=== PATIENT | male | born 1965 | race Caucasian/White ===

== ENCOUNTER 2016-11-11 07:42 | Day surgery (SDC) | payer OTHER ==
[2016-11-11 08:09] VITALS: BMI 31.9
[2016-11-11] MEDS ORDERED: Propofol 10 mg/ml Inj (20 ML) ONE (08:33)
--- NOTE | 2016-11-11 08:34 | CP.SDSHP ---
Same Day Surgery H & P - History Proposed Procedure: EGD Pre-Op Diagnosis: SEE NOTES - Previous Medical/Surgical History Misc: Other Pain: 6.Severe Pain - Allergies Allergies: Allergies No Known Allergies Allergy (Verified 11/11/16 08:08) - Physical Exam General Appearance: N Heart: WNL Lungs: WNL GI: Other - {Optional Preform as Required} Breast: WNL Abdomen: Other Rectal: Other Integument: WNL : WNL Ortho: WNL ENT: WNL - Impression Pt. Evaluated Today:Candidate for Anesthesia & Procedure: Yes - Date & Time Time: 08:34 Short Stay Discharge - Short Stay Discharge Admitting Diagnosis/Reason for Visit: DYSPEPSIA Disposition: HOME/ ROUTINE
[2016-11-11 08:35] VITALS: TEMP 98
[2016-11-11] MEDS ORDERED: Belladonna-Phenobarbital PO STA (08:35)
[2016-11-11 09:42] VITALS: RESP 16; O2SAT 98
[2016-11-11 10:11] VITALS: BP 122/76; PULSE 66
== END 2016-11-11 10:05 | disposition home or self-care (01) ==
LOC: C.ENDO 07:42
PROVIDERS: ATTEND Specialist
DX: K29.70 Gastritis, unspecified, without bleeding (principal); K30 Functional dyspepsia; R10.13 Epigastric pain; K44.9 Diaphragmatic hernia without obstruction or gangrene; K29.80 Duodenitis without bleeding
CPT/HCPCS: 43239; 88305; J2001; J2704

== ENCOUNTER 2016-11-22 00:26 | Emergency (ER) | payer OTHER ==
[2016-11-22 00:26] VITALS: BMI 31.9
[2016-11-22 00:46] VITALS: RESP 16; O2SAT 97
[2016-11-22] MEDS ORDERED: Sodium Chloride 0.9% 1,000 ML IV ONE (01:09)
--- NOTE | 2016-11-22 01:10 | C.PDOC ---
History Of Present Illness 51 y/o male with hx gerd, s/p recent endoscopy, (awaiting results) on nexium, sucralfate and reglan, c/o intermittent left upper quadrant pain x 3 days with nausea and several episodes of vomiting. pt currently fasting during the day for . today pt sts pain was worse, though eating after fast ended decreased pain. no fever or chills. no cp, no sob. Time Seen by Provider: 11/22/16 01:08 Chief Complaint (Nursing): Abdominal Pain History Per: Patient History/Exam Limitations: no limitations Onset/Duration Of Symptoms: Days (3), Intermittent Episodes Current Symptoms Are (Timing): Still Present Context: Food Severity: Moderate Location Of Pain/Discomfort: LUQ Radiation Of Pain To:: Back Quality Of Discomfort: "Pain" Associated Symptoms: Nausea, Vomiting. denies: Fever, Chills, Diarrhea, Loss Of Appetite, Chest Pain Alleviating Factors: Other (eating) Past Medical History Reviewed: Historical Data, Nursing Documentation, Vital Signs Vital Signs: Last Vital Signs Temp 98 F 11/22/16 03:33 Pulse 80 11/22/16 03:33 Resp 16 11/22/16 03:33 BP 121/74 11/22/16 03:33 Pulse Ox 97 11/22/16 04:06 - Medical History PMH: Fractures (LEFT ANKLE WITH SURGERY AND SCREWS), GERD, HTN Denies: Colonic Polyps Surgical History: Endoscopy Family History: States: Unknown Family Hx - Social History Hx Tobacco Use: No Hx Alcohol Use: No Hx Substance Use: No - Immunization History Hx Influenza Vaccination: No Hx Pneumococcal Vaccination: No Review Of Systems Constitutional: Negative for: Fever, Chills Cardiovascular: Negative for: Chest Pain, Palpitations Respiratory: Negative for: Cough, Shortness of Breath Gastrointestinal: Positive for: Nausea, Vomiting, Abdominal Pain. Negative for : Diarrhea, Constipation Musculoskeletal: Negative for: Back Pain Skin: Negative for: Rash Neurological: Negative for: Weakness, Numbness Physical Exam - Physical Exam Appears: Non-toxic, No Acute Distress Skin: Normal Color, Warm, Dry Head: Atraumatic, Normacephalic Nose: Normal Oral Mucosa: Moist Tongue: Normal Appearing Lips: Normal Appearing Teeth: Normal Dentition Neck: Normal ROM Chest: Symmetrical, No Deformity, No Tenderness Cardiovascular: Rhythm Regular, No Murmur Respiratory: Normal Breath Sounds, No Rales, No Rhonchi, No Wheezing Gastrointestinal/Abdominal: Bowel Sounds, Soft, Tenderness (left upper quadrant tender), No Distention, No Guarding, No Rebound Back: Normal Inspection, No CVA Tenderness Extremity: Normal ROM, No Pedal Edema, No Calf Tenderness Neurological/Psych: Oriented x3, Normal Speech, Normal Cognition ED Course And Treatment - Laboratory Results Result Diagrams: 11/22/16 01:47 11/22/16 01:47 ECG: Interpreted By Me, Viewed By Me ECG Rhythm: Sinus Rhythm ECG Interpretation: Normal, No Acute Changes Interpretation Of ECG: nsr Rate From EC O2 Sat by Pulse Oximetry: 97 Pulse Ox Interpretation: Normal Medical Decision Making Medical Decision Making: pt feeling much better after zofran and pepcid, abdomen, soft, nd, nt. normal ekg. normal labs. will d/c home with recommendatin to see Dr Pedraza sooner than December 13 appt scheduled. , Disposition Counseled Patient/Family Regarding: Studies Performed, Diagnosis, Need For Followup - Disposition Referrals: Arianna Pedraza [Staff Provider] - Raquel Anderson MD [Staff Provider] - Disposition: HOME/ ROUTINE Disposition Time: 03:23 Condition: IMPROVED Additional Instructions: Follow up with Drs. Anderson and Dr Pedraza in next few days. Continue taking medications. Return to ER for any worsening symptoms. Instructions: Abdominal Pain (ED) Forms: General Discharge Instructions - Clinical Impression Clinical Impression: Abdominal pain, Gastritis
[2016-11-22] MEDS ORDERED: Sodium Chloride 0.9% 1,000 ML ONE (01:18)
[2016-11-22 01:53] LABS: BASO # 0.1 K/uL (0.0-0.2); CHLORIDE 101 mmol/L (98-107); EOS # 0.2 K/uL (0.0-0.7); HEMATOCRIT 44.4 % (35.0-51.0); LYMPH # 2.9 K/uL (1.0-4.3); LYMPH % 45.5 % (20.0-40.0); MEAN CELL VOLUME 84.8 fL (80.0-94.0); MEAN CORPUSCULAR HEMOGLOBIN 28.3 pg (27.0-31.0); MEAN CORPUSCULAR HGB CONC 33.3 g/dL (33.0-37.0); MEAN PLATELET VOLUME 9.5 fL (7.2-11.7); MONO # 0.6 K/uL (0.0-0.8); MONO % 9.6 % (0.0-10.0); NRBC % 0.1 % (0.0-2.0); RED CELL DISTRIBUTION WIDTH 13.7 % (11.5-14.5); WHITE BLOOD COUNT 6.4 K/uL (4.8-10.8)
[2016-11-22 01:54] LABS: POTASSIUM 3.5 mmol/L (3.6-5.2); SODIUM 142 mmol/L (132-148)
[2016-11-22 01:56] LABS: ALB/GLOB RATIO 1.4 (1.0-2.1); ALKALINE PHOSPHATASE 53 U/L (38-126); AST/SGOT 27 U/L (17-59); BILIRUBIN,TOTAL 1.5 mg/dL (0.2-1.3); CARBON DIOXIDE 26 mmol/L (22-30); GFR AFRICAN-AMERICAN > 60; TOTAL PROTEIN 7.8 g/dL (6.3-8.3)
[2016-11-22 01:57] LABS: ALT/SGPT 30 U/L (21-72); BLOOD UREA NITROGEN 11 mg/dL (9-20); GLUCOSE,RANDOM 109 mg/dL (75-110)
[2016-11-22 03:35] VITALS: BP 121/74; PULSE 80; TEMP 98
--- NOTE | 2016-11-25 00:51 | CARD ---
APPROVED REPORT EKG Measurement Heart [id number] <Conclusion> Normal sinus rhythm Normal ECG
== END 2016-11-22 03:33 | disposition home or self-care (01) ==
LOC: C.ER 00:26
DX: K29.70 Gastritis, unspecified, without bleeding (principal)
CPT/HCPCS: 80053; 83690; 84484; 85025; 96374; 96375; 99284; J2405; J7040

== ENCOUNTER 2016-12-22 00:02 | Emergency (ER) | payer OTHER ==
[2016-12-22 00:02] VITALS: BMI 31.9
[2016-12-22 00:08] VITALS: BP 150/87; PULSE 77; RESP 16; TEMP 98.4; O2SAT 98
--- NOTE | 2016-12-22 00:44 | C.PDOC ---
History Of Present Illness 51 y/o male presents to emergency department with complaint of right ear pain since yesterday. Patient states he was applying old cortisporin drops w/o relief. Denies fever, chills, headache, dizziness, drainage from ear, or other associated symptoms. Time Seen by Provider: 12/22/16 00:12 Chief Complaint (Nursing): ENT Problem History Per: Patient History/Exam Limitations: None Onset/Duration Of Symptoms: Days Current Symptoms Are (Timing): Still Present Anticoagulant/Antiplatlet Use?: No Past Medical History Reviewed: Historical Data, Nursing Documentation, Vital Signs Vital Signs: Last Vital Signs Temp 98.4 F 12/22/16 00:04 Pulse 77 12/22/16 00:04 Resp 16 12/22/16 00:04 BP 150/87 12/22/16 00:04 Pulse Ox 98 12/22/16 01:32 - Medical History PMH: Fractures (LEFT ANKLE WITH SURGERY AND SCREWS), GERD, HTN Surgical History: Endoscopy Family History: States: Unknown Family Hx - Social History Hx Tobacco Use: No Hx Alcohol Use: No Hx Substance Use: No - Immunization History Hx Influenza Vaccination: No Hx Pneumococcal Vaccination: No Review Of Systems Except As Marked, All Systems Reviewed And Found Negative. Constitutional: Negative for: Fever, Chills ENT: Positive for: Ear Pain. Negative for: Throat Pain Respiratory: Negative for: Cough, Wheezing Gastrointestinal: Negative for: Nausea, Vomiting, Abdominal Pain Musculoskeletal: Negative for: Neck Pain Skin: Negative for: Rash Neurological: Negative for: Headache, Dizziness Physical Exam - Physical Exam Appears: Non-toxic, No Acute Distress Skin: Normal Color, Warm, Dry Head: Atraumatic, Normacephalic Eye(s): bilateral: Normal Inspection, PERRL, EOMI Ear(s): Left: Normal, Right: TM Erythema (mild), Other (tragal tenderness) Nose: Normal Oral Mucosa: Moist Throat: Normal, No Erythema, No Exudate Neck: Supple Neurological/Psych: Oriented x3, Normal Speech Gait: Steady ED Course And Treatment O2 Sat by Pulse Oximetry: 98 (RA) Pulse Ox Interpretation: Normal Progress Note: On reassessment, patient is resting comfortably, and is in no acute distress. Patient instructed to follow up with clinic/PMD within 1-2 days. Disposition Counseled Patient/Family Regarding: Diagnosis, Need For Followup, Rx Given - Disposition Referrals: Hien Vickers MD [Staff Provider] - Disposition: HOME/ ROUTINE Disposition Time: 00:42 Condition: STABLE Additional Instructions: Continue ear drops- Take advil for pain Follow up with PMD Return to ER if worse Prescriptions: Neomycin/Polymyxin/Hydrocortis [Cortisporin Otic Susp] 3 - 5 drop TOP TID #1 bottle Instructions: Otitis Externa (ED) - Clinical Impression Clinical Impression: Otitis externa - PA / MANAGER OF ORGANIZATIONAL DEVELOPMENT / Resident Statement MD/DO has reviewed & agrees with the documentation as recorded. - Scribe Statement The provider has reviewed the documentation as recorded by the Jenniferibchidi Chavez All medical record entries made by the Henry were at my direction and personally dictated by me. I have reviewed the chart and agree that the record accurately reflects my personal performance of the history, physical exam, medical decision making, and the department course for this patient. I have also personally directed, reviewed, and agree with the discharge instructions and disposition.
== END 2016-12-22 00:48 | disposition home or self-care (01) ==
LOC: C.ER 00:02
DX: H60.91 Unspecified otitis externa, right ear (principal)

== ENCOUNTER 2017-02-03 13:56 | Emergency (ER) | payer MEDICAID, OTHER ==
[2017-02-03 13:56] VITALS: BMI 31.9
[2017-02-03 14:15] VITALS: RESP 20
--- NOTE | 2017-02-03 14:31 | C.PDOC ---
History Of Present Illness 51 year old male, with a history of HTN, presents to the ED with complaints of high blood pressure with associated dizziness, lightheadedness, and headache beginning this morning. Patient states he was seen by his doctor, Dr. Vickers, two weeks ago for evaluation of blood pressure. Dr. Vickers increased enalapril 5 mg to 10 mg. Patient's takes his medication each night around 10 pm and then takes his pressure in the morning when he wakes. It is normally 125/80. He states today's blood pressure reading was 170/90 with symptoms beginning this morning. Patient did not taking medications or eat today and denies fever, chest pain, or shortness of breath. Time Seen by Provider: 02/03/17 14:16 Chief Complaint (Nursing): Dizziness/Lightheaded History Per: Patient History/Exam Limitations: no limitations Onset/Duration Of Symptoms: Hrs Current Symptoms Are (Timing): Better (Blood pressure is 134/90 in ED but symptoms persist) Seizure Or Post-ictal Symptoms: None Fall Associated With With Symptoms: No Recent travel outside of the [place]: No Additional History Per: Prior Records (Seen by Dr. Vickers two weeks ago ) Past Medical History Reviewed: Historical Data, Nursing Documentation, Vital Signs Vital Signs: Last Vital Signs Temp 98.3 F 02/03/17 14:14 Pulse 79 02/03/17 14:14 Resp 20 02/03/17 14:14 BP 134/83 02/03/17 14:14 Pulse Ox 79 L 02/03/17 14:47 - Medical History PMH: Fractures (LEFT ANKLE WITH SURGERY AND SCREWS), GERD, HTN Surgical History: Endoscopy Family History: States: Unknown Family Hx - Social History Hx Tobacco Use: No Hx Alcohol Use: No Hx Substance Use: No - Immunization History Hx Influenza Vaccination: No Hx Pneumococcal Vaccination: No Review Of Systems Constitutional: Positive for: Other (High blood pressure ). Negative for: Fever , Chills Cardiovascular: Negative for: Chest Pain, Palpitations Respiratory: Negative for: Cough, Shortness of Breath Gastrointestinal: Negative for: Nausea, Vomiting, Abdominal Pain Physical Exam - Physical Exam Appears: Non-toxic, No Acute Distress Skin: Warm, Dry Head: Atraumatic Eye(s): bilateral: Normal Inspection Oral Mucosa: Moist Neck: Supple Chest: Symmetrical, No Deformity Cardiovascular: Rhythm Regular, No Murmur Respiratory: Normal Breath Sounds, No Rales, No Rhonchi, No Wheezing Gastrointestinal/Abdominal: Soft, No Tenderness, No Distention, No Guarding, No Rebound Extremity: Normal ROM, No Tenderness Neurological/Psych: Oriented x3, Normal Speech, Normal Cognition ED Course And Treatment - Laboratory Results Result Diagrams: 02/03/17 14:47 02/03/17 14:47 Lab Interpretation: Normal O2 Sat by Pulse Oximetry: 97 (room air ) Pulse Ox Interpretation: Normal Progress Note: UA and labs were ordered. Reevaluation Time: 15:54 Reassessment Condition: Improved (BP remains low now 129/75. Patient is asymptomatic.) Disposition Counseled Patient/Family Regarding: Studies Performed, Diagnosis, Need For Followup - Disposition Referrals: Hien Vickers MD [Staff Provider] - Disposition: HOME/ ROUTINE Disposition Time: 15:55 Condition: IMPROVED Instructions: Hypertension (ED) Forms: [facility] (Burkinan) - Clinical Impression Clinical Impression: Hypertension - Scribe Statement The provider has reviewed the documentation as recorded by the Scribe Lindsey Jones All medical record entries made by the Scribe were at my direction and personally dictated by me. I have reviewed the chart and agree that the record accurately reflects my personal performance of the history, physical exam, medical decision making, and the department course for this patient. I have also personally directed, reviewed, and agree with the discharge instructions and disposition.
[2017-02-03 14:51] LABS: EOS # 0.1 K/uL (0.0-0.7); EOS % 2.4 % (0.0-4.0); LYMPH # 2.1 K/uL (1.0-4.3); LYMPH % 49.9 % (20.0-40.0); MEAN CELL VOLUME 84.4 fL (80.0-94.0); MEAN CORPUSCULAR HEMOGLOBIN 28.5 pg (27.0-31.0); MEAN CORPUSCULAR HGB CONC 33.7 g/dL (33.0-37.0); MEAN PLATELET VOLUME 8.3 fL (7.2-11.7); MONO # 0.3 K/uL (0.0-0.8); NRBC % 0.1 % (0.0-2.0); RED CELL DISTRIBUTION WIDTH 13.6 % (11.5-14.5); WHITE BLOOD COUNT 4.3 K/uL (4.8-10.8)
[2017-02-03 15:00] LABS: CHLORIDE 102 mmol/L (98-107)
[2017-02-03 15:01] LABS: POTASSIUM 4.1 mmol/L (3.6-5.2); SODIUM 141 mmol/L (132-148)
[2017-02-03 15:02] LABS: URINE BILIRUBIN NEGATIVE (NEGATIVE); URINE BLOOD NEGATIVE (NEGATIVE); URINE COLOR YELLOW (YELLOW); URINE GLUCOSE (UA) Normal (Normal); URINE KETONE NEGATIVE (NEGATIVE)
[2017-02-03 15:03] LABS: ALB/GLOB RATIO 1.2 (1.0-2.1); ALKALINE PHOSPHATASE 57 U/L (38-126); AST/SGOT 23 U/L (17-59); BLOOD UREA NITROGEN 10 mg/dL (9-20); CARBON DIOXIDE 23 mmol/L (22-30); GFR AFRICAN-AMERICAN > 60; TOTAL PROTEIN 7.6 g/dL (6.3-8.3)
[2017-02-03 15:03] LABS: RBC URINE < 1 /hpf (0-3); URINE LEUKOCYTE ESTERASE NEGATIVE Leu/uL (Negative); URINE PROTEIN NEGATIVE (NEGATIVE); URINE UROBILINOGEN Normal mg/dL (0.2-1.0); WBC URINE < 1 /hpf (0-5)
[2017-02-03 15:04] LABS: ALT/SGPT 33 U/L (21-72); CALCIUM 9.4 mg/dl (8.6-10.4); GLUCOSE,RANDOM 121 mg/dL (75-110); MAGNESIUM 2.1 mg/dL (1.6-2.3)
[2017-02-03 15:55] VITALS: O2SAT 97
[2017-02-03 16:12] VITALS: BP 112/73; PULSE 65; TEMP 98.5
== END 2017-02-03 16:11 | disposition home or self-care (01) ==
LOC: C.ER 13:56
DX: I10 Essential (primary) hypertension (principal)

== ENCOUNTER 2017-02-06 17:50 | Emergency (ER) | payer MEDICAID ==
[2017-02-06 17:50] VITALS: BMI 31.9
[2017-02-06 17:59] VITALS: TEMP 98.4
[2017-02-06] MEDS ORDERED: Fluorescein 1 mg Ophthalmic Strip OD ONE (19:27)
[2017-02-06] MEDS ORDERED: Tetracaine 0.5% Ophth 2 ML BOTTLE OD ONE (19:27)
[2017-02-06] MEDS ORDERED: Fluorescein 1 mg Ophthalmic Strip ONE (19:32)
[2017-02-06] MEDS ORDERED: Tetracaine 0.5% Ophth (OR ONLY) ONE (19:34)
--- NOTE | 2017-02-06 19:45 | CT ---
EXAM: CT Head Without Intravenous Contrast EXAM DATE/TIME: 02/06/2017 6:37 PM CLINICAL HISTORY: 51 years old, male; Pain; Headache; Headache not specified; Additional info: Headache. HTN. Right eye pain? TECHNIQUE: Axial computed tomography images of the head/brain without intravenous contrast. All CT scans at this facility use one or more dose reduction techniques, viz.: automated exposure control; ma/kV adjustment per patient size (including targeted exams where dose is matched to indication; i.e. head); or iterative reconstruction technique. COMPARISON: No relevant prior studies available. FINDINGS: BRAIN: No significant acute abnormality identified. Diffuse, mild, age-related cortical atrophy and ventriculomegaly. No acute hemorrhage seen within the brain. No acute extra-axial fluid collections visualized. No evidence of significant mass effect within the brain. Normal frye-white matter differentiation. VENTRICLES: No evidence of significant hydrocephalus. BONES/JOINTS: No acute fractures or other acute bony abnormality noted. SOFT TISSUES: No acute abnormality of the visualized extracranial soft tissues identified. SINUSES: Visualized paranasal sinuses appear clear. MASTOID AIR CELLS: Mastoid air cells appear clear. ORBITS: Intraorbital soft tissues appear grossly intact. IMPRESSION: - No acute findings seen within the brain. - See above for remaining findings.
--- NOTE | 2017-02-06 20:09 | C.PDOC ---
History Of Present Illness Pt c/o right eye pain and headache. Time Seen by Provider: 02/06/17 18:23 Chief Complaint (Nursing): Eye Problem History Per: Patient Onset/Duration Of Symptoms: Days (1) Current Symptoms Are (Timing): Still Present Injury To Eye?: No Severity: Moderate Quality: "Pain" Associated Symptoms: Pain, FB Sensation, Itching, Discharge From Eye Additional History Per: Prior Records Past Medical History Reviewed: Historical Data, Nursing Documentation, Vital Signs Vital Signs: Last Vital Signs Temp 98.4 F 02/06/17 17:57 Pulse 87 02/06/17 17:57 Resp 18 02/06/17 17:57 BP 135/90 02/06/17 17:57 Pulse Ox 99 02/06/17 17:57 - Medical History PMH: Fractures (LEFT ANKLE WITH SURGERY AND SCREWS), Gastritis, GERD, HTN, Hyperlipidemia Surgical History: Endoscopy Family History: States: Unknown Family Hx - Social History Hx Tobacco Use: No Hx Alcohol Use: No Hx Substance Use: No - Immunization History Hx Influenza Vaccination: No Hx Pneumococcal Vaccination: No Review Of Systems Except As Marked, All Systems Reviewed And Found Negative. Constitutional: Negative for: Fever Eyes: Positive for: Pain (right). Negative for: Vision Change, Eyelid Inflammation ENT: Negative for: Ear Pain Cardiovascular: Negative for: Chest Pain Respiratory: Negative for: Shortness of Breath Gastrointestinal: Negative for: Vomiting, Abdominal Pain Musculoskeletal: Negative for: Neck Pain Skin: Negative for: Rash Neurological: Positive for: Headache, Dizziness. Negative for: Weakness, Numbness, Incoordination, Change in Speech, Confusion, Seizures, Altered Mental Status Physical Exam - Physical Exam Appears: Non-toxic, No Acute Distress Skin: Normal Color, Warm, Dry, No Rash Head: Atraumatic, Normacephalic Eye(s): bilateral: PERRL, EOMI, right: Other (mild conjunctival injection) Neck: Normal ROM, Supple Cardiovascular: Rhythm Regular Respiratory: Normal Breath Sounds, No Accessory Muscle Use Gastrointestinal/Abdominal: Soft, No Tenderness Extremity: Normal ROM Neurological/Psych: Oriented x3, Normal Speech, Normal Cognition, Normal Cranial Nerves, No Cerebellar Signs, Normal Motor, Normal Sensation ED Course And Treatment O2 Sat by Pulse Oximetry: 99 Pulse Ox Interpretation: Normal - CT Scan/US CT head Other Rad Studies (CT/US): Read By Radiologist, Radiology Report Reviewed CT/US Interpretation: IMPRESSION: - No acute findings seen within the brain. - See above for remaining findings. Progress Note: Right eye stained with flouricein. There is uptake on the right cornea consistent with cornea abrasion. Eye pain had resolved completely after tetracaine drop. Reassessment Condition: Improved Disposition Counseled Patient/Family Regarding: Studies Performed, Diagnosis, Need For Followup, Rx Given - Disposition Referrals: Merritt Faye MD [Staff Provider] - Disposition: HOME/ ROUTINE Disposition Time: 20:09 Condition: IMPROVED Additional Instructions: Follow up with an [facility] (eye doctor) within 2-3 days. Return to the ER if you develop change in vision, worsening of symptoms or if you have any other concerns. Prescriptions: Tobramycin 0.3% [Tobrex 0.3% Ophth Soln] 2 drop OP QID #1 bottle Instructions: Corneal Abrasion (ED) Forms: [facility] (Palestinian) - Clinical Impression Clinical Impression: Corneal abrasion, right
[2017-02-06 20:31] VITALS: BP 138/85; PULSE 79; RESP 16; O2SAT 98
== END 2017-02-06 20:30 | disposition home or self-care (01) ==
LOC: C.ER 17:50
DX: S05.01XA Injury of conjunctiva and corneal abrasion without foreign body, right eye, initial encounter (principal); X58.XXXA Exposure to other specified factors, initial encounter; Y92.9 Unspecified place or not applicable

== ENCOUNTER 2017-03-04 16:13 | Emergency (ER) | payer MEDICAID ==
[2017-03-04 16:19] VITALS: RESP 18; O2SAT 99; BMI 32.4
[2017-03-04] MEDS ORDERED: Sodium Chloride 0.9% 1,000 ML IV ONE (16:51)
--- NOTE | 2017-03-04 16:51 | C.PDOC ---
History Of Present Illness 52 year old male comes in complaining of headache, dizziness, and tingling sensation to the arms and legs for a month now. Headache is described as tightness around his head, and his dizziness is described as "pressure to the head". Patient notes the tingling sensation to the extremities as "pins to the arms and legs" that last for a few seconds. Patient notes seeing his PMD Dr. Vickers yesterday for the same complaints and recommend neurologist. Patient is not taking meds for the complaints. Denies head trauma, nausea, vomiting, photophobia, weakness, or visual changes. No fever or chills. Time Seen by Provider: 03/04/17 16:31 Chief Complaint (Nursing): Headache History Per: Patient History/Exam Limitations: no limitations Onset/Duration Of Symptoms: Days (One Month) Current Symptoms Are (Timing): Still Present Severity: Mild Quality: Tightness Associated Symptoms: denies: Photophobia, Blurred Vision, Nausea, Vomiting, Extremity Weakness Recent travel outside of the [place]: No Additional History Per: Patient Past Medical History Reviewed: Historical Data, Nursing Documentation, Vital Signs Vital Signs: Last Vital Signs Temp 98.2 F 03/04/17 16:18 Pulse 89 03/04/17 16:18 Resp 18 03/04/17 16:18 BP 145/90 03/04/17 16:18 Pulse Ox 99 03/04/17 18:00 - Medical History PMH: Fractures (LEFT ANKLE WITH SURGERY AND SCREWS), Gastritis, GERD, HTN, Hyperlipidemia Surgical History: Endoscopy Family History: States: Unknown Family Hx - Social History Hx Tobacco Use: No Hx Alcohol Use: No Hx Substance Use: No - Immunization History Hx Tetanus Toxoid Vaccination: No Hx Influenza Vaccination: No Hx Pneumococcal Vaccination: No Review Of Systems Constitutional: Negative for: Fever, Chills, Other (Head trauma) Eyes: Negative for: Vision Change, Other (Photophobia) Cardiovascular: Negative for: Chest Pain, Palpitations Respiratory: Negative for: Cough, Shortness of Breath Gastrointestinal: Negative for: Nausea, Vomiting, Abdominal Pain Neurological: Positive for: Numbness (Tingling sensation), Headache, Dizziness. Negative for: Weakness, Confusion Physical Exam - Physical Exam Appears: Non-toxic, No Acute Distress Skin: Normal Color, Warm, Dry Head: Atraumatic, Normacephalic Eye(s): bilateral: Normal Inspection, PERRL, EOMI Nose: Normal Oral Mucosa: Moist Throat: Normal, No Erythema Neck: Normal ROM, Supple, No Other (negative kernig sign) Chest: Symmetrical Cardiovascular: Rhythm Regular, No Murmur Respiratory: Normal Breath Sounds, No Accessory Muscle Use, No Rales, No Rhonchi , No Wheezing Extremity: Bilateral: Atraumatic, Normal Color And Temperature, Normal ROM Neurological/Psych: Oriented x3, Normal Speech, Normal Cranial Nerves, No Cerebellar Signs, Normal Motor, Normal Sensation, No Dysarthria, Other (No focal deficit) Gait: Steady Other Neurological Findings: No Facial Palsy, No Tongue Deviation ED Course And Treatment - Laboratory Results Result Diagrams: 03/04/17 17:06 03/04/17 17:06 Lab Interpretation: No Acute Changes O2 Sat by Pulse Oximetry: 99 (RA) Pulse Ox Interpretation: Normal Medical Decision Making Medical Decision Making: mpression: headache Prior records reviewed: Patient was seen her 02/06/2017 for headache and eye pain , CT showed no acute findings. Patient had an MRI done on 08/11/2016 with a impression of a small white matter T2 hyperintensities seen in the left cerebral hemisphere. No evidence of intracranial hemorrhage, infarcts or mass lesions. Plan: * Blood labs * Toradol * Reglan * IV fluids Progress: 1745 On reevaluation, patient reports improvement of headache. It has much improved. Patient is resting comfortably, no neurologic deficit, no photophobia , no fever, and no nuchal rigidity. Patient was instructed to follow up with physician DR Vickers for further evaluation or return to ED if symptoms persist or worsen. Patient's status improved during Emergency Department evaluation. Disposition Counseled Patient/Family Regarding: Diagnosis, Need For Followup, Rx Given - Disposition Referrals: Hien Vickers MD [Staff Provider] - Disposition: HOME/ ROUTINE Disposition Time: 18:05 Condition: STABLE Additional Instructions: Follow up with your primary medical doctor DR Vickers for further evaluation. Take medications as prescribed. Return to the emergency department at any time if symptoms persist or worsen. Prescriptions: Acetaminophen/Butalbital/Caf [Fioricet] 1 tab PO TID PRN #20 tab PRN Reason: Headache Instructions: Tension Headache (ED) Forms: [facility] (Frisian) - POA Present On Arrival: None - Clinical Impression Clinical Impression: Headache - Scribe Statement The provider has reviewed the documentation as recorded by the Scribe Gisela adler All medical record entries made by the Jenniferibe were at my direction and personally dictated by me. I have reviewed the chart and agree that the record accurately reflects my personal performance of the history, physical exam, medical decision making, and the department course for this patient. I have also personally directed, reviewed, and agree with the discharge instructions and disposition.
[2017-03-04] MEDS ORDERED: Sodium Chloride 0.9% 1,000 ML ONE (17:16)
[2017-03-04 17:20] LABS: BASO # 0.1 K/uL (0.0-0.2); BASO % 1.7 % (0.0-2.0); EOS # 0.1 K/uL (0.0-0.7); EOS % 1.4 % (0.0-4.0); HEMATOCRIT 40.8 % (35.0-51.0); LYMPH # 1.9 K/uL (1.0-4.3); LYMPH % 43.8 % (20.0-40.0); MEAN CELL VOLUME 84.9 fL (80.0-94.0); MEAN CORPUSCULAR HEMOGLOBIN 29.1 pg (27.0-31.0); MEAN CORPUSCULAR HGB CONC 34.3 g/dL (33.0-37.0); MEAN PLATELET VOLUME 8.6 fL (7.2-11.7); MONO # 0.3 K/uL (0.0-0.8); MONO % 7.3 % (0.0-10.0); RED CELL DISTRIBUTION WIDTH 13.6 % (11.5-14.5); WHITE BLOOD COUNT 4.4 K/uL (4.8-10.8)
[2017-03-04 17:39] LABS: CHLORIDE 99 mmol/L (98-107); POTASSIUM 4.7 mmol/L (3.6-5.2); SODIUM 141 mmol/L (132-148)
[2017-03-04 17:41] LABS: BILIRUBIN,TOTAL 1.5 mg/dL (0.2-1.3); CARBON DIOXIDE 25 mmol/L (22-30); GFR AFRICAN-AMERICAN > 60
[2017-03-04 17:42] LABS: ALB/GLOB RATIO 1.4 (1.0-2.1); ALKALINE PHOSPHATASE 41 U/L (38-126); ALT/SGPT 32 U/L (21-72); AST/SGOT 29 U/L (17-59); BLOOD UREA NITROGEN 12 mg/dL (9-20); CALCIUM 8.6 mg/dl (8.6-10.4); GLUCOSE,RANDOM 90 mg/dL (75-110); TOTAL PROTEIN 7.9 g/dL (6.3-8.3)
[2017-03-04 18:17] VITALS: BP 145/87; PULSE 80; TEMP 97.8
== END 2017-03-04 18:18 | disposition home or self-care (01) ==
LOC: C.ER 16:13
DX: R51 Headache (principal)
CPT/HCPCS: 80053; 85025; 96361; 96374; 96375; 99285; J1885; J2765; J7040

== ENCOUNTER 2017-05-30 02:12 | Emergency (ER) | payer MEDICAID ==
[2017-05-30 02:12] VITALS: BMI 32.4
[2017-05-30 02:30] VITALS: O2SAT 98
[2017-05-30 03:22] VITALS: RESP 18
--- NOTE | 2017-05-30 04:42 | C.PDOC ---
History Of Present Illness Kaylie Donato is a 52 year old male, with a past medical history of hypertension and hyperlipidemia, who presents to the emergency department for high blood pressure and headache onset x1 hour prior to arrival. Patient takes lisinopril 10mg but states blood pressure goes up and down. He took an extra pill today before arriving to the ER. He denies any other medical complaints. PMD: Hien Vickers Chief Complaint (Nursing): High Blood Pressure History Per: Patient History/Exam Limitations: no limitations Onset/Duration Of Symptoms: Hrs (x1 BARN HAND) Associated Symptoms: Headache Past Medical History Reviewed: Historical Data, Nursing Documentation, Vital Signs Vital Signs: Last Vital Signs Temp 97.8 F 05/30/17 05:40 Pulse 80 05/30/17 05:40 Resp 18 05/30/17 05:40 BP 146/85 05/30/17 05:40 Pulse Ox 98 05/30/17 05:46 - Medical History PMH: Fractures (LEFT ANKLE WITH SURGERY AND SCREWS), Gastritis, GERD, HTN, Hyperlipidemia Surgical History: Endoscopy Family History: States: Unknown Family Hx - Social History Hx Tobacco Use: No Hx Alcohol Use: No Hx Substance Use: No - Immunization History Hx Tetanus Toxoid Vaccination: No Hx Influenza Vaccination: No Hx Pneumococcal Vaccination: No Review Of Systems Except As Marked, All Systems Reviewed And Found Negative. Constitutional: Positive for: Other (elevated blood pressure) Neurological: Positive for: Headache Physical Exam - Physical Exam Appears: No Acute Distress Skin: Normal Color, Warm, Dry Head: Atraumatic, Normacephalic Eye(s): bilateral: Normal Inspection, EOMI Neck: Normal, Normal ROM, Supple Cardiovascular: Rhythm Regular Respiratory: Normal Breath Sounds, No Accessory Muscle Use Gastrointestinal/Abdominal: Normal Exam, Soft, No Tenderness Extremity: Normal ROM, No Deformity, No Swelling Neurological/Psych: Oriented x3 (awake and alert), No Other (no focal deficits) ED Course And Treatment O2 Sat by Pulse Oximetry: 98 (RA) Pulse Ox Interpretation: Normal Progress Note: On re-evaluation patient feels better, BP is down, no more c/o headache. Medical Decision Making Medical Decision Making: Initial Impression: HTN Initial Plan: --Head w/o contrast [CT] --Tylenol 650 mg PO --reevaluation 04:[address] FINDINGS: Brain: Mild cerebral and cerebellar volume loss. Minimal hypodensity is seen in the periventricular cerebral white matter. No hemorrhage. Ventricles: Unremarkable. No ventriculomegaly. Bones/joints: Unremarkable. No acute fracture. Soft tissues: Unremarkable. Sinuses: Unremarkable. No acute sinusitis. Mastoid air cells: Unremarkable. No mastoid effusion. Orbits: The globe and lens are intact. IMPRESSION: No evidence of an acute intracranial hemorrhage, midline shift or mass effect is identified. Disposition - Disposition Disposition: HOME/ ROUTINE Disposition Time: 05:35 Condition: STABLE Additional Instructions: Follow up with your PMD within 1-2 days. Return to ED if feel worse. take all medications as instructed by your PMD. Instructions: Hypertension (ED), General Headache (ED) Forms: [employer] (Togolese) - Clinical Impression Clinical Impression: Hypertension, Headache - Scribe Statement Winston Meadows All medical record entries made by the Scribe were at my direction and personally dictated by me. I have reviewed the chart and agree that the record accurately reflects my personal performance of the history, physical exam, medical decision making, and the department course for this patient. I have also personally directed, reviewed, and agree with the discharge instructions and disposition.
--- NOTE | 2017-05-30 04:50 | CT ---
EXAM: CT Head Without Intravenous Contrast CLINICAL HISTORY: 52 years old, male; Pain; Headache; Headache not specified; Additional info: Headache, elevated BP TECHNIQUE: Axial computed tomography images of the head/brain without intravenous contrast. All CT scans at this facility use one or more dose reduction techniques, viz.: automated exposure control; ma/kV adjustment per patient size (including targeted exams where dose is matched to indication; i.e. head); or iterative reconstruction technique. 180 images are submitted. COMPARISON: No relevant prior studies available. FINDINGS: Brain: Mild cerebral and cerebellar volume loss. Minimal hypodensity is seen in the periventricular cerebral white matter. No hemorrhage. Ventricles: Unremarkable. No ventriculomegaly. Bones/joints: Unremarkable. No acute fracture. Soft tissues: Unremarkable. Sinuses: Unremarkable. No acute sinusitis. Mastoid air cells: Unremarkable. No mastoid effusion. Orbits: The globe and lens are intact. IMPRESSION: No evidence of an acute intracranial hemorrhage, midline shift or mass effect is identified.
[2017-05-30 06:23] VITALS: BP 146/85; PULSE 80; TEMP 97.8
== END 2017-05-30 05:45 | disposition home or self-care (01) ==
LOC: C.ER 02:12
DX: I10 Essential (primary) hypertension (principal); R51 Headache; E78.5 Hyperlipidemia, unspecified; K21.9 Gastro-esophageal reflux disease without esophagitis; Z87.891 Personal history of nicotine dependence

== ENCOUNTER 2017-06-18 02:16 | Emergency (ER) | payer MEDICAID ==
[2017-06-18 02:18] VITALS: BMI 32.4
--- NOTE | 2017-06-18 02:54 | C.PDOC ---
History Of Present Illness 52 year old male presents to the ER with a complaint of a headache that began approximately 1 hour QUALITY LIAISON. Patient states he feels like his head it "boiling". He notes he usually does not get headaches but over the past few weeks he has been getting headaches. Patient was seen in the ER on 05/30/17 for the same complaint, he had a CT head at the time that was negative and was discharge with Rx. Denies nausea, vomiting, weakness, numbness, or change in vision. Chief Complaint (Nursing): Headache History Per: Patient History/Exam Limitations: no limitations Onset/Duration Of Symptoms: Hrs Current Symptoms Are (Timing): Still Present Preceeding Symptoms: None Associated Symptoms: denies: Photophobia, Blurred Vision, Nausea, Vomiting, Extremity Weakness Recent travel outside of the [place]: No Past Medical History Reviewed: Historical Data, Nursing Documentation, Vital Signs Vital Signs: Last Vital Signs Temp 98.5 F 06/18/17 05:19 Pulse 68 06/18/17 05:19 Resp 18 06/18/17 05:19 BP 126/80 06/18/17 05:19 Pulse Ox 98 06/18/17 05:19 - Medical History PMH: Fractures (LEFT ANKLE WITH SURGERY AND SCREWS), Gastritis, GERD, HTN, Hyperlipidemia Surgical History: Endoscopy Family History: States: Unknown Family Hx - Social History Hx Tobacco Use: No Hx Alcohol Use: No Hx Substance Use: No - Immunization History Hx Tetanus Toxoid Vaccination: No Hx Influenza Vaccination: No Hx Pneumococcal Vaccination: No Review Of Systems Constitutional: Negative for: Fever, Chills Cardiovascular: Negative for: Chest Pain, Palpitations Respiratory: Negative for: Shortness of Breath Gastrointestinal: Negative for: Nausea, Vomiting Neurological: Positive for: Headache. Negative for: Dizziness Physical Exam - Physical Exam Appears: Non-toxic, No Acute Distress Skin: Normal Color, Warm, Dry Head: Atraumatic, Normacephalic Eye(s): bilateral: Normal Inspection, PERRL, EOMI Oral Mucosa: Moist Neck: Normal, Supple Chest: Symmetrical, No Tenderness Cardiovascular: Rhythm Regular Respiratory: Normal Breath Sounds, No Rales, No Rhonchi, No Wheezing Gastrointestinal/Abdominal: Soft, No Tenderness Extremity: Normal ROM (x4) Neurological/Psych: Oriented x3, Normal Speech, Normal Motor, Normal Sensation, Other (Heel to cabral test within normal limits) ED Course And Treatment - Laboratory Results Result Diagrams: 06/18/17 03:43 06/18/17 03:43 O2 Sat by Pulse Oximetry: 100 Medical Decision Making Medical Decision Making: Compazine and toradol administered. Blood work ordered. Disposition - Disposition Referrals: [facility] [Outside] Disposition: HOME/ ROUTINE Disposition Time: 06:46 Condition: FAIR Prescriptions: Acetaminophen/Butalbital/Caf [Fioricet] 1 tab PO TID #12 tab Instructions: Tension Headache (ED), Hypertension (ED) Forms: [employer] (Faroese) - Clinical Impression Clinical Impression: Tension headache, Hypertension - Scribe Statement The provider has reviewed the documentation as recorded by the Scribe Margarito Cr All medical record entries made by the Scribe were at my direction and personally dictated by me. I have reviewed the chart and agree that the record accurately reflects my personal performance of the history, physical exam, medical decision making, and the department course for this patient. I have also personally directed, reviewed, and agree with the discharge instructions and disposition.
[2017-06-18 03:47] LABS: BASO # 0.1 K/uL (0.0-0.2); BASO % 1.5 % (0.0-2.0); EOS # 0.2 K/uL (0.0-0.7); EOS % 2.4 % (0.0-4.0); HEMOGLOBIN 13.7 g/dL (12.0-18.0); LYMPH # 3.8 K/uL (1.0-4.3); LYMPH % 59.9 % (20.0-40.0); MEAN CELL VOLUME 83.9 fL (80.0-94.0); MEAN CORPUSCULAR HEMOGLOBIN 29.2 pg (27.0-31.0); MEAN CORPUSCULAR HGB CONC 34.8 g/dL (33.0-37.0); MEAN PLATELET VOLUME 8.9 fL (7.2-11.7); MONO # 0.7 K/uL (0.0-0.8); MONO % 10.8 % (0.0-10.0); NEUT # 1.6 K/uL (1.8-7.0); NEUT % 25.4 % (50.0-75.0); RBC 4.69 Mil/uL (4.40-5.90); RED CELL DISTRIBUTION WIDTH 13.5 % (11.5-14.5); WHITE BLOOD COUNT 6.4 K/uL (4.8-10.8)
[2017-06-18 04:00] LABS: ALB/GLOB RATIO 1.3 (1.0-2.1); ALBUMIN 4.3 g/dL (3.5-5.0); ALT/SGPT 18 U/L (21-72); AST/SGOT 21 U/L (17-59); BLOOD UREA NITROGEN 11 mg/dL (9-20); CALCIUM 8.6 mg/dl (8.6-10.4); GFR AFRICAN-AMERICAN > 60; GFR NON-AFRICAN AMERICAN > 60
[2017-06-18 05:19] VITALS: BP 126/80; PULSE 68; RESP 18; TEMP 98.5
[2017-06-18 06:47] VITALS: O2SAT 100
== END 2017-06-18 05:19 | disposition home or self-care (01) ==
LOC: C.ER 02:16
DX: G44.209 Tension-type headache, unspecified, not intractable (principal); I10 Essential (primary) hypertension
CPT/HCPCS: 80053; 85025; 96374; 96375; 99284; J0780; J1885

== ENCOUNTER 2017-08-13 02:02 | Emergency (ER) | payer MEDICAID ==
[2017-08-13 02:03] VITALS: BMI 32.4
[2017-08-13 02:15] VITALS: RESP 20; O2SAT 97
--- NOTE | 2017-08-13 02:43 | C.PDOC ---
History Of Present Illness Patient presents to ED stating that earlier he felt his blood pressure was high and he took extra blood pressure medication. Patient is very anxious. Denies chest pain, SOB, palpitations or any other physical complaints. Patient is speaking in full sentences. Patient is being followed up by his PMD for his blood pressure and is scheduled for blood work today. Time Seen by Provider: 08/13/17 02:40 Chief Complaint (Nursing): Medical Clearance History Per: Patient History/Exam Limitations: no limitations Onset/Duration Of Symptoms: Hrs Current Symptoms Are (Timing): Still Present Recent travel outside of the [place]: No Past Medical History Reviewed: Historical Data, Nursing Documentation, Vital Signs Vital Signs: Last Vital Signs Temp 97.3 F L 08/13/17 02:09 Pulse 88 08/13/17 05:34 Resp 20 08/13/17 05:34 BP 120/81 08/13/17 05:34 Pulse Ox 97 08/13/17 05:48 - Medical History PMH: Fractures (LEFT ANKLE WITH SURGERY AND SCREWS), Gastritis, GERD, HTN, Hyperlipidemia Surgical History: Endoscopy Family History: States: No Known Family Hx - Social History Hx Tobacco Use: No Hx Alcohol Use: No Hx Substance Use: No - Immunization History Hx Tetanus Toxoid Vaccination: No Hx Influenza Vaccination: No Hx Pneumococcal Vaccination: No Review Of Systems Constitutional: Negative for: Fever, Chills Cardiovascular: Negative for: Chest Pain, Palpitations Respiratory: Negative for: Shortness of Breath Gastrointestinal: Negative for: Nausea, Vomiting, Diarrhea Neurological: Negative for: Weakness, Numbness Psych: Positive for: Anxiety. Negative for: Suicidal ideation Physical Exam - Physical Exam Appears: Non-toxic, No Acute Distress, Other (Anxious) Skin: Normal Color, Warm, Dry Head: Normacephalic Eye(s): bilateral: Normal Inspection Oral Mucosa: Moist Neck: Supple Chest: Symmetrical, No Tenderness Cardiovascular: Rhythm Regular Respiratory: No Decreased Breath Sounds, No Rales, No Rhonchi, No Wheezing Gastrointestinal/Abdominal: Soft, No Tenderness Back: Normal Inspection Extremity: No Tenderness, No Pedal Edema Extremity: Bilateral: Atraumatic, Normal Color And Temperature, Normal ROM Neurological/Psych: Oriented x3, Normal Speech, Normal Cognition ED Course And Treatment - Laboratory Results Result Diagrams: 08/13/17 05:03 08/13/17 05:03 ECG: Interpreted By Me, Viewed By Me ECG Rhythm: Sinus Rhythm (67), Nonspecific Changes O2 Sat by Pulse Oximetry: 97 (RA) Pulse Ox Interpretation: Normal - Radiology CXR: Interpreted by Me, Viewed By Me CXR Interpretation: No: Infiltrates, Fracture, Pnemothorax Progress Note: Ordered EKG, blood work, CXR and urinalysis. Reevaluation Time: 05:36 Reassessment Condition: Improved Disposition Counseled Patient/Family Regarding: Studies Performed, Diagnosis - Disposition Referrals: Mariaa Fitzgerald MD [Medical Doctor] - Disposition: HOME/ ROUTINE Disposition Time: 02:43 Condition: FAIR Instructions: High Blood Pressure (DC), Hyperthyroidism (Overactive Thyroid) ( DC) Forms: [employer] (Cambodian) - Clinical Impression Clinical Impression: Hypertension, Hyperthyroidism determined by thyroid function test - Scribe Statement The provider has reviewed the documentation as recorded by the Scribe Narciso Mendiola All medical record entries made by the Scribe were at my direction and personally dictated by me. I have reviewed the chart and agree that the record accurately reflects my personal performance of the history, physical exam, medical decision making, and the department course for this patient. I have also personally directed, reviewed, and agree with the discharge instructions and disposition.
[2017-08-13 05:06] LABS: BASO # 0.1 K/uL (0.0-0.2); EOS # 0.1 K/uL (0.0-0.7); EOS % 1.5 % (0.0-4.0); HEMOGLOBIN 14.9 g/dL (12.0-18.0); LYMPH # 2.4 K/uL (1.0-4.3); LYMPH % 39.6 % (20.0-40.0); MEAN CORPUSCULAR HEMOGLOBIN 29.7 pg (27.0-31.0); MEAN CORPUSCULAR HGB CONC 35.4 g/dL (33.0-37.0); MEAN PLATELET VOLUME 8.1 fL (7.2-11.7); MONO # 0.4 K/uL (0.0-0.8); MONO % 6.6 % (0.0-10.0); NEUT # 3.1 K/uL (1.8-7.0); NEUT % 51.3 % (50.0-75.0); NRBC % 0.3 % (0.0-2.0); RBC 5.02 Mil/uL (4.40-5.90)
[2017-08-13 05:10] LABS: URINE BILIRUBIN NEGATIVE (NEGATIVE); URINE BLOOD NEGATIVE (NEGATIVE); URINE CLARITY Clear (Clear); URINE COLOR Straw (YELLOW); URINE GLUCOSE (UA) NORMAL (Normal); URINE LEUKOCYTE ESTERASE NEG Leu/uL (Negative); URINE PROTEIN NEGATIVE (NEGATIVE); URINE UROBILINOGEN NORMAL mg/dL (0.2-1.0)
[2017-08-13 05:15] LABS: INR 1.1; PROTHROMBIN TIME 12.4 SECONDS (9.7-12.2)
[2017-08-13 05:20] LABS: ALB/GLOB RATIO 1.2 (1.0-2.1); ALBUMIN 4.5 g/dL (3.5-5.0); ALT/SGPT 27 U/L (21-72); AST/SGOT 20 U/L (17-59); BLOOD UREA NITROGEN 12 mg/dL (9-20); CALCIUM 9.4 mg/dl (8.6-10.4); GFR AFRICAN-AMERICAN > 60; GFR NON-AFRICAN AMERICAN > 60
[2017-08-13 05:34] VITALS: BP 120/81; PULSE 88
[2017-08-13 06:05] VITALS: TEMP 98
--- NOTE | 2017-08-13 08:39 | RAD ---
HISTORY: SOB COMPARISON: None available. TECHNIQUE: Chest, one view. FINDINGS: Examination limited by habitus. LUNGS: No focal consolidation. Please note that chest x-ray has limited sensitivity for the detection of pulmonary masses. PLEURA: No significant pleural effusion identified. No definite pneumothorax . CARDIOVASCULAR: Heart size appears within normal limits. OSSEOUS STRUCTURES: No acute osseous abnormality identified. VISUALIZED UPPER ABDOMEN: Unremarkable. OTHER FINDINGS: None. IMPRESSION: No focal consolidation, significant pleural effusion, or definite pneumothorax identified.
--- NOTE | 2017-08-15 20:26 | CARD ---
APPROVED REPORT EKG Measurement Heart [id number] <Conclusion> Normal sinus rhythm Normal ECG
== END 2017-08-13 06:06 | disposition home or self-care (01) ==
LOC: C.ER 02:02
DX: I10 Essential (primary) hypertension (principal); E05.90 Thyrotoxicosis, unspecified without thyrotoxic crisis or storm; E78.5 Hyperlipidemia, unspecified

== ENCOUNTER 2017-11-13 15:13 | Emergency (ER) | payer MEDICAID ==
[2017-11-13 15:14] VITALS: BMI 32.4
[2017-11-13 15:34] VITALS: O2SAT 99
[2017-11-13 16:51] LABS: BASO # 0.1 K/uL (0.0-0.2); BASO % 1.2 % (0.0-2.0); EOS # 0.2 K/uL (0.0-0.7); HEMOGLOBIN 14.6 g/dL (12.0-18.0); LYMPH % 47.1 % (20.0-40.0); MEAN CELL VOLUME 85.2 fL (80.0-94.0); MEAN CORPUSCULAR HEMOGLOBIN 29.9 pg (27.0-31.0); MEAN CORPUSCULAR HGB CONC 35.1 g/dL (33.0-37.0); MEAN PLATELET VOLUME 8.2 fL (7.2-11.7); MONO # 0.4 K/uL (0.0-0.8); MONO % 9.8 % (0.0-10.0); NEUT # 1.6 K/uL (1.8-7.0); NEUT % 36.9 % (50.0-75.0); NRBC % 0.2 % (0.0-2.0); RBC 4.87 Mil/uL (4.40-5.90); RED CELL DISTRIBUTION WIDTH 13.4 % (11.5-14.5); WHITE BLOOD COUNT 4.3 K/uL (4.8-10.8)
[2017-11-13 17:02] LABS: ALB/GLOB RATIO 1.4 (1.0-2.1); ALBUMIN 4.8 g/dL (3.5-5.0); ALT/SGPT 28 U/L (21-72); AST/SGOT 23 U/L (17-59); BLOOD UREA NITROGEN 15 mg/dL (9-20); CALCIUM 9.4 mg/dl (8.6-10.4); GFR AFRICAN-AMERICAN > 60; GFR NON-AFRICAN AMERICAN > 60
[2017-11-13] MEDS ORDERED: Pantoprazole 40 mg EC Tab PO STA (17:26)
--- NOTE | 2017-11-13 17:28 | C.PDOC ---
History Of Present Illness 52-year-old male presents to the emergency department with complaints of bright red blood per rectum when wiping after bowel movements, intermittently x1 week. Pt admits to often straining when having bowel movements. Patient states he was seen by his PMD, who prescribed Proctozol cream which he has been using without relief. Patient denies any rectal pain, abdominal pain, fever, vomiting , diarrhea, or any other associated symptoms. Time Seen by Provider: 11/13/17 15:32 Chief Complaint (Nursing): GI Problem History Per: Patient History/Exam Limitations: no limitations Onset/Duration Of Symptoms: Days, Intermittent Episodes Current Symptoms Are (Timing): Still Present Severity: Mild Past Medical History Reviewed: Historical Data, Nursing Documentation, Vital Signs Vital Signs: Last Vital Signs Temp 98.9 F 11/13/17 17:34 Pulse 79 11/13/17 17:34 Resp 18 11/13/17 17:34 BP 118/71 11/13/17 17:34 Pulse Ox 99 11/13/17 18:42 - Medical History PMH: Fractures (LEFT ANKLE WITH SURGERY AND SCREWS), Gastritis, GERD, HTN, Hyperlipidemia Surgical History: Endoscopy Family History: States: No Known Family Hx - Social History Hx Tobacco Use: No Hx Alcohol Use: No Hx Substance Use: No - Immunization History Hx Tetanus Toxoid Vaccination: No Hx Influenza Vaccination: No Hx Pneumococcal Vaccination: No Review Of Systems Constitutional: Negative for: Fever, Chills Cardiovascular: Negative for: Chest Pain, Palpitations Respiratory: Negative for: Shortness of Breath Gastrointestinal: Positive for: Other (bright red blood per rectum when wiping after bowel movement). Negative for: Nausea, Vomiting, Abdominal Pain, Diarrhea , Melena, Rectal Pain Genitourinary: Negative for: Dysuria, Hematuria Musculoskeletal: Negative for: Back Pain Skin: Negative for: Rash Physical Exam - Physical Exam Appears: Well, Non-toxic, No Acute Distress Skin: Normal Color, Warm, Dry, No Pale, No Rash Eye(s): bilateral: Normal Inspection Oral Mucosa: Moist Neck: Normal Cardiovascular: Rhythm Regular, No Murmur Respiratory: Normal Breath Sounds, No Rales, No Rhonchi, No Wheezing Gastrointestinal/Abdominal: Normal Exam, Bowel Sounds, Soft, No Tenderness Rectal: Rectal Tone (Normal), Heme Positive, No Hemorrhoids (No external hemorrhoids, no palpable masses), No Mass, Other (No fissures. No stool in vault ) Neurological/Psych: Oriented x3 ED Course And Treatment - Laboratory Results Result Diagrams: 11/13/17 16:44 11/13/17 16:44 O2 Sat by Pulse Oximetry: 99 (RA) Pulse Ox Interpretation: Normal Progress Note: Bloodwork ordered and reviewed. Patient given PO Colace and Protonix. Gaiac (+) stool, however blood work was normal. Patient instructed to follow up with GI within 1 week, understands he needs colonoscopy. States last colonoscopy was >[address] Rich, who no longer takes his insurance. Rxs for colace and protonix given. Patient understands he should return to ED if symptoms worsen. Disposition Counseled Patient/Family Regarding: Studies Performed, Diagnosis, Need For Followup, Rx Given - Disposition Referrals: Stevan Funk MD [Staff Provider] - Raquel Anderson MD [Staff Provider] - Disposition: HOME/ ROUTINE Disposition Time: 17:30 Condition: STABLE Additional Instructions: FOLLOW UP WITH RADIATION CONTROL SPECIALIST WITHIN 1 WEEK USE MEDICATIONS DIRECTED RETURN TO ER IF SYMPTOMS WORSEN Prescriptions: Docusate [Colace] 100 mg PO DAILY #30 cap Pantoprazole [Protonix EC Tab] 20 mg PO DAILY #30 ect Instructions: Bloody Stools, Adult (DC) Forms: [facility] [employer] (Kuwaiti) Print Language: KINYARWANDA - POA Present On Arrival: None - Clinical Impression Clinical Impression: Rectal bleeding - Scribe Statement The provider has reviewed the documentation as recorded by the Scribe (Bob Kruger) All medical record entries made by the Scribe were at my direction and personally dictated by me. I have reviewed the chart and agree that the record accurately reflects my personal performance of the history, physical exam, medical decision making, and the department course for this patient. I have also personally directed, reviewed, and agree with the discharge instructions and disposition.
[2017-11-13] MEDS ORDERED: Pantoprazole 40 mg EC Tab PO ONE (17:39)
[2017-11-13 18:20] VITALS: BP 118/71; PULSE 79; RESP 18; TEMP 98.9
== END 2017-11-13 18:20 | disposition home or self-care (01) ==
LOC: C.ER 15:13
DX: K62.5 Hemorrhage of anus and rectum (principal)
CPT/HCPCS: 36415; 80053; 85025; 99284; G0328

== ENCOUNTER 2017-11-15 22:04 | Emergency (ER) | payer MEDICAID ==
[2017-11-15 22:04] VITALS: BMI 32.4
[2017-11-15 23:06] LABS: BASO # 0.1 K/uL (0.0-0.2); BASO % 1.4 % (0.0-2.0); EOS # 0.1 K/uL (0.0-0.7); EOS % 2.9 % (0.0-4.0); HEMOGLOBIN 14.2 g/dL (12.0-18.0); LYMPH # 2.1 K/uL (1.0-4.3); LYMPH % 41.7 % (20.0-40.0); MEAN CELL VOLUME 84.6 fL (80.0-94.0); MEAN CORPUSCULAR HEMOGLOBIN 29.3 pg (27.0-31.0); MEAN CORPUSCULAR HGB CONC 34.7 g/dL (33.0-37.0); MONO # 0.6 K/uL (0.0-0.8); MONO % 11.2 % (0.0-10.0); NEUT # 2.2 K/uL (1.8-7.0); NEUT % 42.8 % (50.0-75.0); RBC 4.84 Mil/uL (4.40-5.90); RED CELL DISTRIBUTION WIDTH 13.6 % (11.5-14.5); WHITE BLOOD COUNT 5.1 K/uL (4.8-10.8)
[2017-11-15 23:14] LABS: INR 1.2; PROTHROMBIN TIME 12.6 SECONDS (9.7-12.2)
[2017-11-15 23:19] LABS: ALB/GLOB RATIO 1.3 (1.0-2.1); ALBUMIN 4.7 g/dL (3.5-5.0); ALT/SGPT 23 U/L (21-72); AST/SGOT 23 U/L (17-59); BLOOD UREA NITROGEN 13 mg/dL (9-20); CALCIUM 9.5 mg/dl (8.6-10.4); GFR AFRICAN-AMERICAN > 60; GFR NON-AFRICAN AMERICAN > 60
--- NOTE | 2017-11-15 23:29 | C.PDOC ---
History Of Present Illness Pt c/o bloody, painful bowel movements. Time Seen by Provider: 11/15/17 22:38 Chief Complaint (Nursing): GI Problem History Per: Patient Onset/Duration Of Symptoms: Days, Intermittent Episodes (once a day with bowel movement) Current Symptoms Are (Timing): Still Present Number Of Bleeding Episodes: Multiple: Amount of Blood Loss: Small Severity: Moderate Quality Of Discomfort: "Pain" Associated Symptoms: Rectal Bleeding Modifying Factors: None Additional History Per: Prior Records Past Medical History Reviewed: Historical Data, Nursing Documentation, Vital Signs Vital Signs: Last Vital Signs Temp 97.6 F 11/15/17 22:06 Pulse 75 11/15/17 22:06 Resp 20 11/15/17 22:06 BP 126/75 11/15/17 22:06 Pulse Ox 100 11/15/17 22:06 - Medical History PMH: Fractures (LEFT ANKLE WITH SURGERY AND SCREWS), Gastritis, GERD, HTN, Hyperlipidemia Surgical History: Endoscopy Family History: States: Unknown Family Hx - Social History Hx Tobacco Use: No Hx Alcohol Use: No Hx Substance Use: No - Immunization History Hx Tetanus Toxoid Vaccination: No Hx Influenza Vaccination: No Hx Pneumococcal Vaccination: No Review Of Systems Except As Marked, All Systems Reviewed And Found Negative. Constitutional: Negative for: Fever, Weakness Cardiovascular: Negative for: Chest Pain Respiratory: Negative for: Shortness of Breath Gastrointestinal: Positive for: Abdominal Pain (on/off), Constipation, Hematochezia, Rectal Pain. Negative for: Vomiting, Melena Genitourinary: Negative for: Dysuria Musculoskeletal: Negative for: Neck Pain, Back Pain Skin: Negative for: Rash Neurological: Negative for: Weakness, Numbness Physical Exam - Physical Exam Appears: Non-toxic, No Acute Distress Skin: Normal Color, Warm, Dry, No Rash Head: Atraumatic, Normacephalic Eye(s): bilateral: Normal Inspection, PERRL, EOMI Neck: Normal ROM, Supple Cardiovascular: Rhythm Regular Respiratory: Normal Breath Sounds, No Accessory Muscle Use Gastrointestinal/Abdominal: Soft, No Tenderness, No Distention Rectal: Rectal Tone (wnl), Heme Positive, No Maroon Stool, No Melena, No Blood Streaked Stool, Hemorrhoids, Tenderness, Other (Brown stools) Back: No CVA Tenderness Extremity: Normal ROM Neurological/Psych: Oriented x3, Normal Motor, Normal Sensation ED Course And Treatment - Laboratory Results Result Diagrams: 11/15/17 23:02 11/15/17 23:02 Lab Interpretation: No Changes Compared To Prior Results Interpretation Of Abnormal: No drop in H/H. O2 Sat by Pulse Oximetry: 100 Pulse Ox Interpretation: Normal Progress Note: Pt states he made an appointment with GI doctor for next week. Disposition Counseled Patient/Family Regarding: Studies Performed, Diagnosis, Need For Followup, Rx Given - Disposition Referrals: Raquel Anderson MD [Staff Provider] - Disposition: HOME/ ROUTINE Disposition Time: 23:31 Condition: STABLE Additional Instructions: Follow up with the GI doctor for further evaluation and treatment. Return to the ER if you develop worsening of symptoms or if you have any other concerns. Prescriptions: Phenylephrine [Lulú-Med NF] 1 supp RC QID PRN #30 sup PRN Reason: Hemorrhoids Instructions: Hemorrhoids (DC) Forms: [employer] (Sao Tomean) - Clinical Impression Clinical Impression: Hemorrhoids
[2017-11-15 23:41] VITALS: BP 136/74; PULSE 78; RESP 18; TEMP 98; O2SAT 98
== END 2017-11-15 23:41 | disposition home or self-care (01) ==
LOC: C.ER 22:04
DX: K64.9 Unspecified hemorrhoids (principal)
CPT/HCPCS: 80053; 85025; 85610; 85730; 99284; G0328

== ENCOUNTER 2017-11-20 18:01 | Emergency (ER) | payer MEDICAID ==
[2017-11-20 18:01] VITALS: BMI 32.4
[2017-11-20 18:06] VITALS: O2SAT 100
[2017-11-20] MEDS ORDERED: Lactated Ringer's 1,000 ML IVB STA (18:23)
[2017-11-20] MEDS ORDERED: Lactated Ringer's 1,000 ML ONE (18:44)
[2017-11-20 18:46] LABS: BASO # 0.1 K/uL (0.0-0.2); BASO % 1.1 % (0.0-2.0); EOS # 0.2 K/uL (0.0-0.7); EOS % 3.3 % (0.0-4.0); HEMOGLOBIN 14.1 g/dL (12.0-18.0); LYMPH # 2.3 K/uL (1.0-4.3); LYMPH % 43.2 % (20.0-40.0); MEAN CELL VOLUME 85.2 fL (80.0-94.0); MEAN CORPUSCULAR HEMOGLOBIN 28.9 pg (27.0-31.0); MEAN CORPUSCULAR HGB CONC 33.9 g/dL (33.0-37.0); MONO # 0.5 K/uL (0.0-0.8); MONO % 9.3 % (0.0-10.0); NEUT # 2.3 K/uL (1.8-7.0); NEUT % 43.1 % (50.0-75.0); NRBC % 0.2 % (0.0-2.0); RBC 4.89 Mil/uL (4.40-5.90); RED CELL DISTRIBUTION WIDTH 13.7 % (11.5-14.5); WHITE BLOOD COUNT 5.4 K/uL (4.8-10.8)
[2017-11-20 19:06] LABS: ALB/GLOB RATIO 1.3 (1.0-2.1); ALBUMIN 4.7 g/dL (3.5-5.0); ALT/SGPT 25 U/L (21-72); AST/SGOT 22 U/L (17-59); BLOOD UREA NITROGEN 13 mg/dL (9-20); CALCIUM 9.2 mg/dl (8.6-10.4); GFR AFRICAN-AMERICAN > 60; GFR NON-AFRICAN AMERICAN > 60
--- NOTE | 2017-11-20 19:46 | CT ---
EXAM: CT Head Without Intravenous Contrast EXAM DATE/TIME: Exam ordered 11/20/2017 6:47 PM CLINICAL HISTORY: 52 years old, male; Pain; Headache; Patient HX: 05-30-17; Additional info: Headache and dizziness TECHNIQUE: Axial computed tomography images of the head/brain without intravenous contrast. All CT scans at this facility use one or more dose reduction techniques, viz.: automated exposure control; ma/kV adjustment per patient size (including targeted exams where dose is matched to indication; i.e. head); or iterative reconstruction technique. COMPARISON: CT - HEAD W/O CONTRAST 2017-05-30 03:19 FINDINGS: Brain: Unremarkable. No hemorrhage. No significant white matter disease. No edema. Ventricles: Unremarkable. No ventriculomegaly. Bones/joints: Unremarkable. No acute fracture. Soft tissues: Unremarkable. Sinuses: Unremarkable as visualized. No acute sinusitis. Mastoid air cells: Unremarkable as visualized. No mastoid effusion. IMPRESSION: Normal head/brain CT.
--- NOTE | 2017-11-20 19:55 | C.PDOC ---
Time Seen by Provider: 11/20/17 18:09 Chief Complaint (Nursing): Dizziness/Lightheaded History Per: Patient Onset/Duration Of Symptoms: Days (2), Waxing/Waning Current Symptoms Are (Timing): Still Present Associated Symptoms Preceding Syncopal Episode: Lightheadedness Fall Associated With With Symptoms: No Severity: Moderate Additional History Per: Prior Records - Symptoms Of CVA Recent Head Trauma: No Past Medical History Reviewed: Historical Data, Nursing Documentation, Vital Signs Vital Signs: Last Vital Signs Temp 98.2 F 11/20/17 18:04 Pulse 79 11/20/17 19:00 Resp 17 11/20/17 19:00 BP 129/72 11/20/17 19:00 Pulse Ox 100 11/20/17 19:00 - Medical History PMH: Fractures (LEFT ANKLE WITH SURGERY AND SCREWS), Gastritis, GERD, HTN, Hyperlipidemia Surgical History: Endoscopy Family History: States: Unknown Family Hx - Social History Hx Tobacco Use: No Hx Alcohol Use: No Hx Substance Use: No - Immunization History Hx Tetanus Toxoid Vaccination: No Hx Influenza Vaccination: No Hx Pneumococcal Vaccination: No Review Of Systems Except As Marked, All Systems Reviewed And Found Negative. Constitutional: Positive for: Malaise. Negative for: Fever Cardiovascular: Negative for: Chest Pain Respiratory: Negative for: Shortness of Breath, Hemoptysis Gastrointestinal: Positive for: Nausea. Negative for: Vomiting, Abdominal Pain , Diarrhea, Melena, Hematochezia, Hematemesis Genitourinary: Negative for: Dysuria Musculoskeletal: Negative for: Neck Pain, Back Pain Skin: Negative for: Rash Neurological: Positive for: Headache. Negative for: Weakness, Numbness, Confusion, Seizures, Altered Mental Status Physical Exam - Physical Exam Appears: Non-toxic, No Acute Distress Skin: Normal Color, Warm, Dry, No Rash Head: Atraumatic, Normacephalic Eye(s): bilateral: Normal Inspection, PERRL, EOMI Oral Mucosa: Moist Neck: Normal ROM, Supple Cardiovascular: Rhythm Regular Respiratory: Normal Breath Sounds, No Accessory Muscle Use Gastrointestinal/Abdominal: Soft, No Tenderness Back: No CVA Tenderness Extremity: Normal ROM, No Pedal Edema, No Calf Tenderness Neurological/Psych: Oriented x3, Normal Speech, Normal Cognition, No Cerebellar Signs, Normal Motor, Normal Sensation ED Course And Treatment - Laboratory Results Result Diagrams: 11/20/17 18:40 11/20/17 18:40 Lab Interpretation: No Acute Changes ECG: Interpreted By Me, Viewed By Me ECG Rhythm: Sinus Rhythm, Nonspecific Changes ECG Interpretation: No Acute Changes Rate From EC O2 Sat by Pulse Oximetry: 100 Pulse Ox Interpretation: Normal - CT Scan/US CT head Other Rad Studies (CT/US): Read By Radiologist, Radiology Report Reviewed CT/US Interpretation: IMPRESSION: Normal head/brain CT. Reassessment Condition: Improved Progress - Interventions Interventions:: Observation, Intravenous fluid - Medications Administered Intravenous: Antiemetic - Data Reviewed Data Reviewed: Lab, Diagnostic imaging, EKG, Old records - Patient Status Patient status: Completely improved - Continuity of Care Discussed patient case with:: Patient, ED Nurse - Patient Plan Patient Plan: Discharge, F/U with PCP, Continue present meds Disposition Counseled Patient/Family Regarding: Studies Performed, Diagnosis, Need For Followup - Disposition Referrals: Raquel Anderson MD [Staff Provider] - Disposition: HOME/ ROUTINE Disposition Time: 19:57 Condition: IMPROVED Additional Instructions: Drink plenty of fluids. Follow up with your doctor for further evaluation and treatment. Return to the ER if you pass out, develop chest pain, shortness of breath, vomiting, weakness, worsening of symptoms or if you have any other concerns. Instructions: Dizziness, Nonvertigo, (DC) - Clinical Impression Clinical Impression: Dizziness
[2017-11-20 19:56] VITALS: BP 103/64; PULSE 68; RESP 18; TEMP 98.7
--- NOTE | 2017-11-21 16:37 | CARD ---
APPROVED REPORT EKG Measurement Heart [id number] CO 160P47 [id number] <Conclusion> Normal sinus rhythm T wave abnormality, nonspecific Abnormal ECG
== END 2017-11-20 20:05 | disposition home or self-care (01) ==
LOC: C.ER 18:01
DX: R42 Dizziness and giddiness (principal); I10 Essential (primary) hypertension; E78.5 Hyperlipidemia, unspecified
CPT/HCPCS: 70450; 80053; 82948; 83735; 84484; 85025; 93005; 96374; 99285; J2765; J7120

== ENCOUNTER 2017-12-05 17:52 | Emergency (ER) | payer MEDICAID, OTHER ==
[2017-12-05 17:52] VITALS: BMI 32.4
--- NOTE | 2017-12-05 19:06 | C.PDOC ---
History Of Present Illness Patient seen tonite due to episodes of feeling like pasing out with weakness. Denies any chest pain or palpitation. No definte weakness noted or neurodeficit. Time Seen by Provider: 12/05/17 19:05 Chief Complaint (Nursing): Dizziness/Lightheaded History Per: Patient History/Exam Limitations: no limitations Onset/Duration Of Symptoms: Days, Intermittent Episodes Current Symptoms Are (Timing): Still Present Activity At Onset Of Symptoms: Walking Associated Symptoms Preceding Syncopal Episode: No Predromal Symptoms (Sudden Onset), Lightheadedness. denies: Vertigo Past Medical History Vital Signs: Last Vital Signs Temp 98.4 F 12/05/17 17:58 Pulse 74 12/05/17 17:58 Resp 16 12/05/17 17:58 BP 148/84 12/05/17 17:58 Pulse Ox 100 12/05/17 22:24 - Medical History PMH: Fractures (LEFT ANKLE WITH SURGERY AND SCREWS), Gastritis, GERD, HTN, Hyperlipidemia Surgical History: Endoscopy Family History: States: Unknown Family Hx - Social History Hx Tobacco Use: No Hx Alcohol Use: No Hx Substance Use: No - Immunization History Hx Tetanus Toxoid Vaccination: No Hx Influenza Vaccination: No Hx Pneumococcal Vaccination: No Review Of Systems Constitutional: Positive for: Weakness. Negative for: Fever, Chills, Sweats, Malaise, Weight loss Eyes: Negative for: Pain, Vision Change, Conjunctivae Inflammation ENT: Negative for: Ear Pain, Ear Discharge, Nose Pain Cardiovascular: Positive for: Light Headedness. Negative for: Chest Pain, Palpitations, Orthopnea, Paroxysmal Noc. Dyspnea, Edema Respiratory: Negative for: Cough, Shortness of Breath, Hemoptysis Gastrointestinal: Positive for: Abdominal Pain. Negative for: Nausea, Vomiting , Diarrhea Genitourinary: Negative for: Dysuria, Frequency, Incontinence Musculoskeletal: Negative for: Neck Pain, Shoulder Pain, Arm Pain Skin: Negative for: Rash, Lesions Neurological: Positive for: Weakness, Headache, Dizziness. Negative for: Numbness, Incoordination, Change in Speech, Confusion, Seizures, Altered Mental Status Psych: Negative for: Anxiety, Depression, Suicidal ideation, Withdrawal Physical Exam - Physical Exam Appears: Non-toxic, No Acute Distress Skin: Normal Color Eye(s): bilateral: Normal Inspection, PERRL, EOMI Nose: Normal Throat: Normal Neck: Normal, Supple, Other (no bruit) Chest: Symmetrical, No Deformity, No Tenderness, No Ecchymosis, No Subcutaneous Emphysema Cardiovascular: Rhythm Regular, No Edema, No Friction Rub, No Murmur, No JVD Respiratory: Normal Breath Sounds Gastrointestinal/Abdominal: Normal Exam Back: Normal Inspection Extremity: Normal ROM Neurological/Psych: Oriented x3, Normal Speech, Normal Cognition, Normal Cranial Nerves ED Course And Treatment - Laboratory Results Result Diagrams: 12/05/17 19:29 12/05/17 19:29 Interpretation Of Abnormal: UDS positive for phenobarb. ECG: Interpreted By Me, Viewed By Me ECG Rhythm: Sinus Rhythm ECG Interpretation: Normal Interpretation Of ECG: NSR, normal tracings. Rate From EC O2 Sat by Pulse Oximetry: 100 - CT Scan/US head Other Rad Studies (CT/US): Read By Radiologist (no acute process.) Disposition Counseled Patient/Family Regarding: Diagnosis - Disposition Referrals: Raquel Anderson MD [Staff Provider] - Disposition: HOME/ ROUTINE Disposition Time: 22:22 Condition: STABLE Prescriptions: Meclizine [Antivert] 12.5 mg PO Q6 #20 tab Instructions: Dizziness, Nonvertigo, (DC) Forms: [facility] (Cambodian) - POA Present On Arrival: None - Clinical Impression Clinical Impression: Dizziness
[2017-12-05] MEDS ORDERED: Sodium Chloride 0.9% 1,000 ML IV ONE (19:11)
[2017-12-05 19:32] LABS: BASO # 0.1 K/uL (0.0-0.2); BASO % 1.2 % (0.0-2.0); EOS # 0.1 K/uL (0.0-0.7); EOS % 1.8 % (0.0-4.0); HEMOGLOBIN 13.9 g/dL (12.0-18.0); LYMPH # 2.2 K/uL (1.0-4.3); LYMPH % 40.6 % (20.0-40.0); MEAN CORPUSCULAR HEMOGLOBIN 29.6 pg (27.0-31.0); MEAN CORPUSCULAR HGB CONC 34.8 g/dL (33.0-37.0); MEAN PLATELET VOLUME 7.7 fL (7.2-11.7); MONO # 0.4 K/uL (0.0-0.8); MONO % 7.6 % (0.0-10.0); NEUT # 2.7 K/uL (1.8-7.0); NEUT % 48.8 % (50.0-75.0); NRBC % 0.2 % (0.0-2.0); RBC 4.69 Mil/uL (4.40-5.90); RED CELL DISTRIBUTION WIDTH 13.8 % (11.5-14.5); WHITE BLOOD COUNT 5.5 K/uL (4.8-10.8)
[2017-12-05 19:38] LABS: URINE BILIRUBIN NEGATIVE (NEGATIVE); URINE BLOOD NEGATIVE (NEGATIVE); URINE CLARITY Clear (Clear); URINE COLOR Straw (YELLOW); URINE GLUCOSE (UA) NORMAL (Normal); URINE LEUKOCYTE ESTERASE NEG Leu/uL (Negative); URINE PROTEIN NEGATIVE (NEGATIVE); URINE UROBILINOGEN NORMAL mg/dL (0.2-1.0)
[2017-12-05 19:53] LABS: BENZODIAZEPINES, UR NEGATIVE (NEGATIVE); OPIATES, UR NEGATIVE (NEGATIVE); PHENCYCLIDINE, UR NEGATIVE (NEGATIVE)
[2017-12-05 19:53] LABS: ALB/GLOB RATIO 1.4 (1.0-2.1); ALBUMIN 4.8 g/dL (3.5-5.0); ALT/SGPT 26 U/L (21-72); AST/SGOT 27 U/L (17-59); BLOOD UREA NITROGEN 14 mg/dL (9-20); CALCIUM 9.5 mg/dl (8.6-10.4); GFR AFRICAN-AMERICAN > 60; GFR NON-AFRICAN AMERICAN > 60; LIPASE 51 U/L (23-300)
[2017-12-05 19:58] LABS: BARBITURATES, UR POSITIVE (NEGATIVE)
[2017-12-05 22:39] VITALS: BP 118/71; PULSE 66; RESP 20; TEMP 98.3; O2SAT 97
--- NOTE | 2017-12-06 07:15 | CT ---
PROCEDURE: CT HEAD WITHOUT CONTRAST. HISTORY: Headache COMPARISON: CT head dated 11/20/2017 TECHNIQUE: Axial computed tomography images were obtained through the head/brain without intravenous contrast. Radiation dose: Total exam DLP = 894 mGy-cm. This CT exam was performed using one or more of the following dose reduction techniques: Automated exposure control, adjustment of the mA and/or kV according to patient size, and/or use of iterative reconstruction technique. FINDINGS: HEMORRHAGE: No intracranial hemorrhage. BRAIN: No mass effect or edema. No atrophy or chronic microvascular ischemic changes. VENTRICLES: Unremarkable. No hydrocephalus. CALVARIUM: Unremarkable. PARANASAL SINUSES: Unremarkable as visualized. No significant inflammatory changes. MASTOID AIR CELLS: Unremarkable as visualized. No inflammatory changes. OTHER FINDINGS: None. IMPRESSION: No acute intracranial abnormality. If symptoms persists, consider correlation with MRI. These findings were preliminarily reported at 8:11 p.m. on 12/05/[address] Sushil Romero from [facility].
--- NOTE | 2017-12-06 23:24 | CARD ---
APPROVED REPORT EKG Measurement Heart [id number] UT 154P44 [id number] <Conclusion> Normal sinus rhythm Normal ECG
== END 2017-12-05 22:37 | disposition home or self-care (01) ==
LOC: C.ER 17:52
DX: R42 Dizziness and giddiness (principal); E78.5 Hyperlipidemia, unspecified; I10 Essential (primary) hypertension
CPT/HCPCS: 70450; 80053; 80324; 80345; 80346; 80349; 80353; 80358; 80361; 81001; 83690; 83992; 84484; 85025; 93005; 96360; 96361; 99285; J7030

== ENCOUNTER 2017-12-06 18:43 | Emergency (ER) | payer OTHER ==
[2017-12-06 18:43] VITALS: BMI 32.4
[2017-12-06 18:52] VITALS: O2SAT 100
--- NOTE | 2017-12-06 20:04 | C.PDOC ---
History Of Present Illness 52 y/o male presents to ED for complaints of headache. Patient was seen in ER yesterday for similar complaints and was discharged with negative CT and blood work. Patient states he is not feeling better and is feeling anxious. Denies fever, chills, nausea, and vomiting. Time Seen by Provider: 12/06/17 20:03 Chief Complaint (Nursing): Headache History Per: Patient History/Exam Limitations: no limitations Onset/Duration Of Symptoms: Hrs Current Symptoms Are (Timing): Still Present Severity: Mild Pain Scale Rating Of: 1 Quality: Dull Preceeding Symptoms: None Associated Symptoms: denies: Photophobia, Blurred Vision, Nausea, Vomiting Recent travel outside of the [place]: No Additional History Per: Patient Past Medical History Reviewed: Historical Data, Nursing Documentation, Vital Signs Vital Signs: Last Vital Signs Temp 98.7 F 12/06/17 20:38 Pulse 65 12/06/17 20:38 Resp 18 12/06/17 20:38 BP 106/69 12/06/17 20:38 Pulse Ox 100 12/06/17 20:38 - Medical History PMH: Fractures (LEFT ANKLE WITH SURGERY AND SCREWS), Gastritis, GERD, HTN, Hyperlipidemia Surgical History: Endoscopy Family History: States: Unknown Family Hx - Social History Hx Tobacco Use: No Hx Alcohol Use: No Hx Substance Use: No - Immunization History Hx Tetanus Toxoid Vaccination: No Hx Influenza Vaccination: No Hx Pneumococcal Vaccination: No Review Of Systems Constitutional: Negative for: Fever, Chills Eyes: Negative for: Vision Change Gastrointestinal: Negative for: Nausea, Vomiting, Abdominal Pain, Diarrhea Neurological: Positive for: Headache. Negative for: Weakness, Numbness, Dizziness Psych: Positive for: Anxiety Physical Exam - Physical Exam Appears: Non-toxic, No Acute Distress Skin: Warm, Dry Head: Normacephalic Eye(s): bilateral: Normal Inspection Ear(s): Bilateral: Normal Nose: Normal, No Discharge Oral Mucosa: Moist Neck: Trachea Midline, Supple Chest: Symmetrical Cardiovascular: Rhythm Regular Respiratory: No Rales, No Rhonchi, No Wheezing Gastrointestinal/Abdominal: Soft, No Tenderness Extremity: Normal ROM Extremity: Bilateral: Atraumatic Neurological/Psych: Oriented x3, Normal Speech (Speaking in full sentences ), Other (No focal deficits ) Gait: Steady ED Course And Treatment O2 Sat by Pulse Oximetry: 100 (RA) Pulse Ox Interpretation: Normal Progress Note: Administered Motrin and Zofran. Disposition Counseled Patient/Family Regarding: Studies Performed, Diagnosis, Need For Followup, Rx Given - Disposition Referrals: Raquel Anderson MD [Staff Provider] - Disposition: HOME/ ROUTINE Disposition Time: 20:03 Condition: FAIR Additional Instructions: Please return if symptoms recur Prescriptions: Ketorolac Tromethamine [Toradol] 10 mg PO TID PRN #15 tab PRN Reason: Pain, Moderate (4-7) Ondansetron ODT [Zofran ODT] 1 odt PO BID PRN #10 odt PRN Reason: Nausea/Vomiting Instructions: Headache, Adult (DC) Forms: [facility] (Eritrean) - Clinical Impression Clinical Impression: Migraine - Scribe Statement The provider has reviewed the documentation as recorded by the Jenniferibchidi Mendiola All medical record entries made by the Scribe were at my direction and personally dictated by me. I have reviewed the chart and agree that the record accurately reflects my personal performance of the history, physical exam, medical decision making, and the department course for this patient. I have also personally directed, reviewed, and agree with the discharge instructions and disposition.
[2017-12-06 20:39] VITALS: BP 106/69; PULSE 65; RESP 18; TEMP 98.7
== END 2017-12-06 20:39 | disposition home or self-care (01) ==
LOC: C.ER 18:43
DX: G43.909 Migraine, unspecified, not intractable, without status migrainosus (principal)

== ENCOUNTER 2017-12-13 09:31 | Emergency (ER) | payer OTHER ==
[2017-12-13 09:31] VITALS: BMI 32.4
[2017-12-13 09:44] VITALS: O2SAT 98
[2017-12-13 11:11] LABS: BASO % 0.3 % (0.0-2.0); EOS # 0.1 K/uL (0.0-0.7); HEMOGLOBIN 13.7 g/dL (12.0-18.0); MEAN CELL VOLUME 85.4 fL (80.0-94.0); MONO # 0.5 K/uL (0.0-0.8); NEUT # 2.4 K/uL (1.8-7.0); NRBC % 0.1 % (0.0-2.0)
--- NOTE | 2017-12-13 11:11 | RAD ---
Date of service: 12/13/2017 HISTORY: fever COMPARISON: Chest radiograph dated 08/13/2017. TECHNIQUE: Chest PA and lateral FINDINGS: LUNGS: No active pulmonary disease. PLEURA: No significant pleural effusion identified. No pneumothorax apparent. CARDIOVASCULAR: Normal. OSSEOUS STRUCTURES: Unchanged. VISUALIZED UPPER ABDOMEN: Normal. OTHER FINDINGS: None. IMPRESSION: No active disease.
[2017-12-13 11:13] LABS: EOS % 2.6 % (0.0-4.0); LYMPH % 39.6 % (20.0-40.0); MEAN CORPUSCULAR HEMOGLOBIN 29.9 pg (27.0-31.0); MEAN PLATELET VOLUME 8.2 fL (7.2-11.7); MONO % 9.2 % (0.0-10.0); NEUT % 48.3 % (50.0-75.0); RBC 4.58 Mil/uL (4.40-5.90); RED CELL DISTRIBUTION WIDTH 13.6 % (11.5-14.5)
[2017-12-13 11:23] LABS: ALB/GLOB RATIO 1.5 (1.0-2.1); ALBUMIN 4.6 g/dL (3.5-5.0); ALT/SGPT 28 U/L (21-72); AST/SGOT 25 U/L (17-59); BLOOD UREA NITROGEN 16 mg/dL (9-20); GFR AFRICAN-AMERICAN > 60; GFR NON-AFRICAN AMERICAN > 60
--- NOTE | 2017-12-13 12:31 | C.PDOC ---
History Of Present Illness 52 y/o male presents to the ER complaining of chills and sweats which have been present since 8 am today. Patient states that he was concerned his BP was high so he decided to visit the ER. Patient reports that he is compliant with his BP medications. He checked his BP at home, his BP was 120/80. He rechecked the BP and found the BP was 180/90. Denies having fever, CP, SOB, headache, dizziness, nausea, vomiting, and abdominal pain. Time Seen by Provider: 12/13/17 10:28 Chief Complaint (Nursing): Flu-like Symptoms History Per: Patient History/Exam Limitations: no limitations Onset/Duration Of Symptoms: Hrs Current Symptoms Are (Timing): Still Present Severity: Moderate Past Medical History Reviewed: Historical Data, Nursing Documentation, Vital Signs Vital Signs: Last Vital Signs Temp 98.7 F 12/13/17 13:23 Pulse 72 12/13/17 13:23 Resp 18 12/13/17 13:23 BP 128/77 12/13/17 13:23 Pulse Ox 98 12/13/17 18:12 - Medical History PMH: Fractures (LEFT ANKLE WITH SURGERY AND SCREWS), Gastritis, GERD, HTN, Hyperlipidemia Surgical History: Endoscopy Family History: States: No Known Family Hx - Social History Hx Tobacco Use: No Hx Alcohol Use: No Hx Substance Use: No - Immunization History Hx Tetanus Toxoid Vaccination: No Hx Influenza Vaccination: No Hx Pneumococcal Vaccination: No Review Of Systems Except As Marked, All Systems Reviewed And Found Negative. Constitutional: Positive for: Chills. Negative for: Fever Cardiovascular: Negative for: Chest Pain Respiratory: Negative for: Shortness of Breath Gastrointestinal: Negative for: Nausea, Vomiting, Abdominal Pain Neurological: Negative for: Headache, Dizziness Physical Exam - Physical Exam Appears: Non-toxic, Other (anxious) Skin: Normal Color, Warm, Dry Head: Atraumatic, Normacephalic Eye(s): bilateral: Normal Inspection Nose: Normal Oral Mucosa: Moist Neck: Supple Chest: Symmetrical Cardiovascular: Rhythm Regular Respiratory: Normal Breath Sounds, No Rales, No Rhonchi, No Wheezing Gastrointestinal/Abdominal: Normal Exam, Soft, No Tenderness, No Guarding, No Rebound Neurological/Psych: Oriented x3, Normal Speech ED Course And Treatment - Laboratory Results Result Diagrams: 12/13/17 11:08 12/13/17 11:08 ECG: Interpreted By Me, Viewed By Me ECG Rhythm: Sinus Rhythm ECG Interpretation: Normal Rate From EC O2 Sat by Pulse Oximetry: 98 (RA) Pulse Ox Interpretation: Normal - Radiology CXR: Interpreted by Me, Viewed By Me CXR Interpretation: Yes: No Acute Disease Progress Note: Patient visited [facility] ER 2x in the last week. Records have been reviewed from the visits. Labs,UA, CXR, and EKG ordered and reviewed.Patient is resting comfortably, is no longer having chest pain or shortness of breath. Patient has no risk factors for pulmonary emboli or DVT. Clinical presentation is not suggestive of aortic dissection. Patient is being discharged home and is being advised to follow up with physician/ clinic in 1-2 days. Disposition - Disposition Referrals: Raquel Anderson MD [Staff Provider] - Disposition: HOME/ ROUTINE Disposition Time: 13:00 Condition: STABLE Additional Instructions: Follow up with your doctor in 1-2 days. Return to ER if symptoms persist or worsen. Instructions: Viral Syndrome (DC) Forms: [employer] (Azeri) - Clinical Impression Clinical Impression: Viral syndrome - PA / DRUM OPERATOR / Resident Statement MD/DO has reviewed & agrees with the documentation as recorded. - Scribe Statement The provider has reviewed the documentation as recorded by the Henry Lamb Provider Attestation All medical record entries made by the Scribe were at my direction and personally dictated by me. I have reviewed the chart and agree that the record accurately reflects my personal performance of the history, physical exam, medical decision making, and the department course for this patient. I have also personally directed, reviewed, and agree with the discharge instructions and disposition.
[2017-12-13 12:43] LABS: URINE BILIRUBIN NEGATIVE (NEGATIVE); URINE BLOOD NEGATIVE (NEGATIVE); URINE CLARITY Clear (Clear); URINE COLOR Yellow (YELLOW); URINE GLUCOSE (UA) NORMAL (Normal); URINE LEUKOCYTE ESTERASE NEG Leu/uL (Negative); URINE PROTEIN NEGATIVE (NEGATIVE); URINE UROBILINOGEN NORMAL mg/dL (0.2-1.0)
[2017-12-13 13:24] VITALS: BP 128/77; PULSE 72; RESP 18; TEMP 98.7
--- NOTE | 2017-12-15 12:26 | CARD ---
APPROVED REPORT Date of service: 12/13/2017 EKG Measurement Heart [id number] CO 164P58 [id number] <Conclusion> Normal sinus rhythm Normal ECG
== END 2017-12-13 13:44 | disposition home or self-care (01) ==
LOC: C.ER 09:31
DX: B34.9 Viral infection, unspecified (principal); I10 Essential (primary) hypertension; K21.9 Gastro-esophageal reflux disease without esophagitis; E78.5 Hyperlipidemia, unspecified; Z87.891 Personal history of nicotine dependence

== ENCOUNTER 2017-12-23 17:53 | Emergency (ER) | payer OTHER ==
[2017-12-23 17:53] VITALS: BMI 32.4
[2017-12-23] MEDS ORDERED: Iohexol 240 (50 ml) PO ONE (19:21)
[2017-12-23] MEDS ORDERED: Sodium Chloride 0.9% 1,000 ML IV ONE (19:22)
--- NOTE | 2017-12-23 19:23 | C.PDOC ---
History Of Present Illness The patient presents to the ED for evaluation of rectal bleeding which occurred last night and today. Patient states bleeding only occurs when having bowel movements. He denies fever, chills, abdominal pain, vomiting, diarrhea. PMD: Dr. Pedraza, A Chief Complaint (Nursing): GI Problem History Per: Patient History/Exam Limitations: no limitations Onset/Duration Of Symptoms: Hrs Current Symptoms Are (Timing): Still Present Number Of Bleeding Episodes: Multiple: Quality Of Discomfort: denies: "Pain" Associated Symptoms: denies: Vomiting, Diarrhea Additional History Per: Patient Past Medical History Reviewed: Historical Data, Nursing Documentation, Vital Signs Vital Signs: Last Vital Signs Temp 98.2 F 12/23/17 18:03 Pulse 115 H 12/23/17 18:03 Resp 18 12/23/17 18:03 BP 121/76 12/23/17 18:03 Pulse Ox 100 12/23/17 22:18 - Medical History PMH: Fractures (LEFT ANKLE WITH SURGERY AND SCREWS), Gastritis, GERD, HTN, Hyperlipidemia Surgical History: Endoscopy Family History: States: Unknown Family Hx - Social History Hx Tobacco Use: No Hx Alcohol Use: No Hx Substance Use: No - Immunization History Hx Tetanus Toxoid Vaccination: No Hx Influenza Vaccination: No Hx Pneumococcal Vaccination: No Review Of Systems Constitutional: Negative for: Fever, Chills Gastrointestinal: Positive for: Other (rectal bleeding ). Negative for: Vomiting, Abdominal Pain, Diarrhea Physical Exam - Physical Exam Appears: Non-toxic, No Acute Distress Skin: Normal Color, Warm, Dry Head: Atraumatic, Normacephalic Eye(s): bilateral: Normal Inspection Oral Mucosa: Moist Neck: Supple Chest: Symmetrical, No Deformity, No Tenderness Cardiovascular: Rhythm Regular Respiratory: Normal Breath Sounds, No Rales, No Rhonchi, No Wheezing Gastrointestinal/Abdominal: Soft, No Tenderness, No Guarding, No Rebound Rectal: No Hemorrhoids (external ), Other (no blood noted during fecal exam ) Extremity: Normal ROM, Capillary Refill (less than 2 seconds ) Neurological/Psych: Oriented x3, Normal Speech, Normal Cognition ED Course And Treatment - Laboratory Results Result Diagrams: 12/23/17 19:35 12/23/17 19:35 O2 Sat by Pulse Oximetry: 100 (on RA) Pulse Ox Interpretation: Normal - CT Scan/US CT A/P Other Rad Studies (CT/US): Interpreted By Me, Read By Radiologist, Radiology Report Reviewed CT/US Interpretation: EXAM: CT Abdomen and Pelvis With Intravenous Contrast. CLINICAL HISTORY: 52 years old, male; Condition or disease; Intestinal condition ; Other: Rectal. bleed. TECHNIQUE: Axial computed tomography images of the abdomen and pelvis with intravenous. contrast. All CT scans at this facility use at least one of these dose optimization techniques: automated exposure control; mA and/or kV adjustment per patient size (includes targeted exams. where dose is matched to clinical indication); or iterative reconstruction. Coronal and sagittal. reformatted images were created and reviewed. CONTRAST: 100 mL of OMNIPAQUE 300 was administered intravenously. COMPARISON: No relevant prior studies available. FINDINGS: Lung bases: Calcified granuloma left lung base. ABDOMEN: Liver: Unremarkable. No mass. Gallbladder and bile ducts: Unremarkable. No calcified stones. No ductal dilation. Pancreas: Unremarkable. No mass. No ductal dilation. Spleen: Unremarkable. No splenomegaly. Adrenals: Unremarkable. No mass. Kidneys and ureters: Bilateral renal cysts measuring larger than a centimeter in size on the right. Stomach and bowel: Unremarkable. No obstruction. No mucosal thickening. PELVIS: Appendix: Normal appendix. Bladder: Unremarkable. No mass. Reproductive: Unremarkable as visualized. ABDOMEN and PELVIS: Intraperitoneal space: Unremarkable. No free air. No significant fluid collection. [facility] | Preliminary Radiology Report. CONFIDENTIALITY STATEMENT. This report is intended only for the use of the referring physician, and only in accordance with law, If you received this in error, call [phone]. Page 2 of 2. Bones/joints: No acute fracture. No dislocation. Soft tissues: Unremarkable. Vasculature: Unremarkable. No abdominal aortic aneurysm. Lymph nodes: Unremarkable. No enlarged lymph nodes. IMPRESSION: No acute findings. The colon and rectum are unremarkable. Progress Note: Bloodwork, urinalysis, CT A/P ordered and reviewed. IV Fluids given. 22:17: Case discussed with Dr. Pedraza. Advised to instruct patient to follow up with him in office. Disposition Discussed With : Arianna Pedraza Doctor Will See Patient In The: Office Counseled Patient/Family Regarding: Diagnosis - Disposition Referrals: Arianna Pedraza [Staff Provider] - Disposition: HOME/ ROUTINE Disposition Time: 22:02 Condition: STABLE Instructions: Bloody Stools, Adult (DC) Forms: [facility] (Cuban) - POA Present On Arrival: None - Clinical Impression Clinical Impression: Rectal bleed - Scribe Statement The provider has reviewed the documentation as recorded by the Scribe (Sharmila Peraza) Provider Attestation: All medical record entries made by the Scribe were at my direction and personally dictated by me. I have reviewed the chart and agree that the record accurately reflects my personal performance of the history, physical exam, medical decision making, and the department course for this patient. I have also personally directed, reviewed, and agree with the discharge instructions and disposition.
[2017-12-23 19:38] LABS: BASO # 0.1 K/uL (0.0-0.2); BASO % 1.3 % (0.0-2.0); EOS # 0.1 K/uL (0.0-0.7); EOS % 1.5 % (0.0-4.0); HEMOGLOBIN 14.6 g/dL (12.0-18.0); LYMPH # 1.7 K/uL (1.0-4.3); LYMPH % 34.7 % (20.0-40.0); MEAN CELL VOLUME 86.7 fL (80.0-94.0); MEAN CORPUSCULAR HEMOGLOBIN 29.4 pg (27.0-31.0); MEAN CORPUSCULAR HGB CONC 33.9 g/dL (33.0-37.0); MONO # 0.6 K/uL (0.0-0.8); MONO % 11.3 % (0.0-10.0); NEUT # 2.6 K/uL (1.8-7.0); NEUT % 51.2 % (50.0-75.0); NRBC % 0.4 % (0.0-2.0); RBC 4.95 Mil/uL (4.40-5.90); RED CELL DISTRIBUTION WIDTH 13.7 % (11.5-14.5)
[2017-12-23] MEDS ORDERED: Iohexol 240 (50 ml) ONE (19:41)
[2017-12-23 19:45] LABS: INR 1.2; PROTHROMBIN TIME 12.6 SECONDS (9.7-12.2)
[2017-12-23 20:15] LABS: ALB/GLOB RATIO 1.4 (1.0-2.1); ALBUMIN 4.9 g/dL (3.5-5.0); ALT/SGPT 29 U/L (21-72); AST/SGOT 17 U/L (17-59); BLOOD UREA NITROGEN 16 mg/dL (9-20); CALCIUM 10.2 mg/dl (8.6-10.4); GFR AFRICAN-AMERICAN > 60; GFR NON-AFRICAN AMERICAN > 60
[2017-12-23] MEDS ORDERED: Iohexol 300 100 ML IJ ONE (21:00)
[2017-12-23 22:28] VITALS: BP 120/70; PULSE 84; RESP 14; TEMP 98; O2SAT 98
--- NOTE | 2017-12-24 11:36 | CT ---
Date of service: 12/23/2017 PROCEDURE: CT Abdomen and Pelvis with contrast HISTORY: RECTAL BLEED COMPARISON: None. TECHNIQUE: Following oral and intravenous contrast administration, a CT examination of the abdomen and pelvis performed from the domes of the diaphragms to the symphysis pubis with reformatted datasets provided not only axial but also sagittal and coronal series. Contrast dose: Omnipaque 300, 100 cc Radiation dose: Total exam DLP = 664.13 mGy-cm. This CT exam was performed using one or more of the following dose reduction techniques: Automated exposure control, adjustment of the mA and/or kV according to patient size, and/or use of iterative reconstruction technique. FINDINGS: LOWER THORAX: Punctate calcified granuloma left lower lobe base. LIVER: Unremarkable. No gross lesion or ductal dilatation. GALLBLADDER AND BILE DUCTS: Unremarkable. PANCREAS: Unremarkable. No gross lesion or ductal dilatation. SPLEEN: Unremarkable. ADRENALS: Unremarkable. No mass. KIDNEYS AND URETERS: The upper pole right renal cyst measures 2.1 cm with a midpole right renal cyst measuring 4.8 cm. Both cysts appear simple. A 1.1 lucency is seen exophytic off the midpole left kidney measuring 33 Hounsfield units and potentially representing a hyperdense cyst. Consider follow-up ultrasound or CT or MRI with and without contrast. VASCULATURE: Unremarkable. No aortic aneurysm. BOWEL: The stomach is collapsed and not well evaluated. There is adequate opacification of the large bowel up to the sigmoid segment which is un opacified as well as the rectum. No suspicious mural thickening or gross mass is appreciable. Opacified small bowel loops appear unremarkable. Mild retained fecal material seen in the rectal vault. No perirectal reaction. APPENDIX: Normal appendix. PERITONEUM: Unremarkable. No free fluid. No free air. LYMPH NODES: Unremarkable. No enlarged lymph nodes. BLADDER: Unremarkable. REPRODUCTIVE: Borderline prostate enlargement noted. BONES: No acute fracture. OTHER FINDINGS: None. IMPRESSION: Nonacute contrast enhanced CT of the abdomen and pelvis. No suspicious bowel findings as discussed above. Bilateral renal lucencies with cysts noted at the right and potential hyperdense cyst left kidney though quite small 1.1 cm. Follow-up CT or MRI with without contrast can be performed for additional evaluation, oral sound, as clinically warranted.
== END 2017-12-23 22:28 | disposition home or self-care (01) ==
LOC: C.ER 17:53
DX: K62.5 Hemorrhage of anus and rectum (principal)
CPT/HCPCS: 74177; 80053; 85025; 85610; 85730; 86850; 86900; 99283; G0328; Q9967

== ENCOUNTER 2018-02-18 18:27 | Emergency (ER) | payer OTHER ==
[2018-02-18 18:27] VITALS: BMI 32.4
[2018-02-18 18:57] VITALS: TEMP 98.2; O2SAT 99
--- NOTE | 2018-02-18 20:11 | C.PDOC ---
History Of Present Illness 53 year old male presents to the ED complaining of rectal pain for a couple of days. He reports he saw his GI doctor who prescribed Proctsone and Cortisol suppositories. He notes he is not longer bleeding but the pain persists. Time Seen by Provider: 02/18/18 20:02 Chief Complaint (Nursing): Medical Clearance History Per: Patient History/Exam Limitations: no limitations Onset/Duration Of Symptoms: Days Current Symptoms Are (Timing): Still Present Severity: Mild Pain Scale Rating Of: 4 Reports Recently: Treated By A Physician Past Medical History Reviewed: Historical Data, Nursing Documentation, Vital Signs Vital Signs: Last Vital Signs Temp 98.2 F 02/18/18 18:53 Pulse 81 02/18/18 18:53 Resp 18 02/18/18 18:53 BP 125/72 02/18/18 18:53 Pulse Ox 99 02/18/18 18:53 - Medical History PMH: Fractures (LEFT ANKLE WITH SURGERY AND SCREWS), Gastritis, GERD, HTN, Hyperlipidemia Surgical History: Endoscopy Family History: States: No Known Family Hx - Social History Hx Tobacco Use: No Hx Alcohol Use: No Hx Substance Use: No - Immunization History Hx Tetanus Toxoid Vaccination: No Hx Influenza Vaccination: No Hx Pneumococcal Vaccination: No Review Of Systems Gastrointestinal: Positive for: Rectal Pain. Negative for: Hematochezia Physical Exam - Physical Exam Appears: Non-toxic Gastrointestinal/Abdominal: Soft, No Tenderness Rectal: Hemorrhoids (non thrombosed external hemorrhoid) Neurological/Psych: Oriented x3, Normal Speech ED Course And Treatment O2 Sat by Pulse Oximetry: 99 (RA) Pulse Ox Interpretation: Normal Disposition - Disposition Forms: [employer] (Cuban) - Scribe Statement The provider has reviewed the documentation as recorded by the Scribchidi Santos All medical record entries made by the Scribe were at my direction and personally dictated by me. I have reviewed the chart and agree that the record accurately reflects my personal performance of the history, physical exam, medical decision making, and the department course for this patient. I have also personally directed, reviewed, and agree with the discharge instructions and disposition.
--- NOTE | 2018-02-18 20:12 | C.PDOC ---
History Of Present Illness 53 year old male presents to the ED complaining of rectal pain for a couple of days. He reports he saw his GI doctor who prescribed Proctosone and Cortisol suppositories. He notes he is not longer bleeding but the pain persists. Time Seen by Provider: 02/18/18 20:02 Chief Complaint (Nursing): Medical Clearance History Per: Patient History/Exam Limitations: no limitations Onset/Duration Of Symptoms: Days Current Symptoms Are (Timing): Still Present Severity: Moderate Pain Scale Rating Of: 4 Reports Recently: Treated By A Physician Past Medical History Reviewed: Historical Data, Nursing Documentation, Vital Signs Vital Signs: Last Vital Signs Temp 98.2 F 02/18/18 18:53 Pulse 76 02/18/18 20:23 Resp 16 02/18/18 20:23 BP 134/84 02/18/18 20:23 Pulse Ox 99 02/18/18 20:24 - Medical History PMH: Fractures (LEFT ANKLE WITH SURGERY AND SCREWS), Gastritis, GERD, HTN, Hyperlipidemia Surgical History: Endoscopy Family History: States: No Known Family Hx - Social History Hx Tobacco Use: No Hx Alcohol Use: No Hx Substance Use: No - Immunization History Hx Tetanus Toxoid Vaccination: No Hx Influenza Vaccination: No Hx Pneumococcal Vaccination: No Review Of Systems Gastrointestinal: Positive for: Rectal Pain. Negative for: Hematochezia Physical Exam - Physical Exam Appears: Non-toxic Gastrointestinal/Abdominal: Soft, No Tenderness Rectal: Hemorrhoids (large non-thrombosed external hemorrhoid ) Neurological/Psych: Oriented x3 ED Course And Treatment O2 Sat by Pulse Oximetry: 99 (RA) Pulse Ox Interpretation: Normal Medical Decision Making Medical Decision Making: Patient was given Rx for Lidocaine 4% Topical. Patient instructed to follow up with GI doctor or return if symptoms persist or worsen. Disposition Counseled Patient/Family Regarding: Studies Performed, Diagnosis, Need For Followup, Rx Given - Disposition Referrals: Arianna Pedraza [Staff Provider] - Disposition: HOME/ ROUTINE Disposition Time: 20:07 Condition: FAIR Additional Instructions: Please return if symptoms recur Prescriptions: Lidocaine 4% [Lidocaine 4% 50 mL Topical (OR)] 50 ml TOP TID #2 bottle Instructions: Hemorrhoids (DC) Forms: [employer] (Tunisian) - Clinical Impression Clinical Impression: Hemorrhoids - Scribe Statement The provider has reviewed the documentation as recorded by the Scribe Anahy Santos All medical record entries made by the Henry were at my direction and personally dictated by me. I have reviewed the chart and agree that the record accurately reflects my personal performance of the history, physical exam, medical decision making, and the department course for this patient. I have also personally directed, reviewed, and agree with the discharge instructions and disposition.
[2018-02-18 20:25] VITALS: BP 134/84; PULSE 76; RESP 16
== END 2018-02-18 20:25 | disposition home or self-care (01) ==
LOC: C.ER 18:27
DX: K64.4 Residual hemorrhoidal skin tags (principal); I10 Essential (primary) hypertension; E78.5 Hyperlipidemia, unspecified

== ENCOUNTER 2018-02-20 18:12 | Emergency (ER) | payer OTHER ==
[2018-02-20 18:12] VITALS: BMI 32.4
[2018-02-20 21:01] VITALS: BP 116/79; PULSE 68; RESP 16; TEMP 98.5
--- NOTE | 2018-02-20 21:01 | C.PDOC ---
History Of Present Illness <Clint López E - Last Filed: 02/20/18 20:59> <Sindy Borden - Last Filed: 02/20/18 21:27> PGY-[address] López. 53 year old male with PMHx of hemorrhoid and HTN presents to ED complaining of persistent anal pain for the past 4-5 days that severely worsened today. Tylenol provided moderate improvement of pain. Patient saw his GI, Dr. Rich, 4- 5 days ago who prescribed proctosone ointment and a rectal suppository, which provided some relief of symptoms. Afterward patient states he developed a buldge at the anus and came to [facility] ED 2 days ago. He was diagnosed with a hemorrhoid and discharged with lidocaine spray for pain, which was minimally effective. Patient saw his PMD today who prescribed cephalexin 500mg TID. Patient called Dr. Rich's office and was told to come to ED and have him paged. (Sindy Borden) <Clint López E - Last Filed: 02/20/18 20:59> <Sindy Borden - Last Filed: 02/20/18 21:27> Time Seen by Provider: 02/20/18 20:04 Chief Complaint (Nursing): GI Problem Past Medical History - Medical History PMH: Fractures (LEFT ANKLE WITH SURGERY AND SCREWS), Gastritis, GERD, HTN, Hyperlipidemia Surgical History: Endoscopy Family History: States: Unknown Family Hx - Social History Hx Tobacco Use: No Hx Alcohol Use: No Hx Substance Use: No - Immunization History Hx Tetanus Toxoid Vaccination: No Hx Influenza Vaccination: No Hx Pneumococcal Vaccination: No <Clint López - Last Filed: 02/20/18 20:59> Vital Signs: Last Vital Signs Temp 98.5 F 02/20/18 21:00 Pulse 68 02/20/18 21:00 Resp 16 02/20/18 21:00 BP 116/79 02/20/18 21:00 Pulse Ox 97 02/20/18 21:21 Review Of Systems Constitutional: Negative for: Fever, Chills, Sweats Cardiovascular: Negative for: Chest Pain, Palpitations Respiratory: Negative for: Cough, Shortness of Breath Gastrointestinal: Positive for: Rectal Pain. Negative for: Nausea, Vomiting, Abdominal Pain, Diarrhea, Constipation, Melena, Hematochezia, Hematemesis <BordenSindy P - Last Filed: 02/20/18 21:27> Physical Exam - Physical Exam Appears: Well, Non-toxic, No Acute Distress Skin: Normal Color, Warm Head: Atraumatic, Normacephalic Eye(s): bilateral: Normal Inspection Cardiovascular: Rhythm Regular, No Rhythm Irregular, No Edema, No Friction Rub Respiratory: Normal Breath Sounds, No Decreased Breath Sounds, No Accessory Muscle Use, No Rales, No Rhonchi, No Wheezing Gastrointestinal/Abdominal: Normal Exam, Bowel Sounds, Soft, No Tenderness Rectal: Hemorrhoids (non-thrombosed external hemorrhoid at 9 o'clock. Tender to palpation. No active bleeding. ) Neurological/Psych: Oriented x3, Normal Speech <Sindy Borden P - Last Filed: 02/20/18 21:27> ED Course And Treatment O2 Sat by Pulse Oximetry: 98 <Clint López E - Last Filed: 02/20/18 20:59> Medical Decision Making <Clint López E - Last Filed: 02/20/18 20:59> <Sindy Borden P - Last Filed: 02/20/18 21:27> Medical Decision Making: baseline external hemorroid (medium size 9'o'clock position) already with mutiple treatments and moderately well controlled NOT thrombosed at this time ok to f/u with GI/Colorectal/PMD as needed as opt, per Dr. Rich who referred pt (Clint López) Disposition Doctor Will See Patient In The: Office Counseled Patient/Family Regarding: Studies Performed, Diagnosis - Disposition Disposition Time: 21:01 <Clint López E - Last Filed: 02/20/18 20:59> <Sindy Borden P - Last Filed: 02/20/18 21:27> - Disposition Referrals: [facility] [Outside] [facility] [Outside] Jasbir Moreno MD [Staff Provider] - Arianna Rich [Staff Provider] - Additional Instructions: high fruit/diet keep stools very soft avoid narcotic pain relievers- they cause constipation which makes hard stools and hemorroids worse Continue hemorroid creams and treatment as previously prescribed Call to make f/u appt with Dr. Rich. Instructions: Hemorrhoids (DC) Forms: [employer] (Latvian) - Clinical Impression Clinical Impression: Hemorrhoids
--- NOTE | 2018-02-20 21:14 | C.PDOC ---
History Of Present Illness PGY-[address] López. 53 year old male with PMHx of hemorrhoid and HTN presents to ED complaining of persistent anal pain for the past 4-5 days that worsened today. Tylenol provided moderate improvement of pain. Patient saw his GI, Dr. Pedraza, 4-5 days ago who prescribed proctosone ointment and a rectal suppository, which provided some relief of symptoms. Afterward patient states he developed a buldge at the anus and came to [facility] ED 2 days ago. He was diagnosed with a hemorrhoid and discharged with lidocaine spray for pain, which was minimally effective. Patient saw his PMD today who prescribed cephalexin 500mg TID. Patient called Dr. Pedraza's office and was told to come to ED and have him paged. Time Seen by Provider: 02/20/18 20:04 Chief Complaint (Nursing): GI Problem Past Medical History Vital Signs: Last Vital Signs Temp 98.5 F 02/20/18 21:00 Pulse 68 02/20/18 21:00 Resp 16 02/20/18 21:00 BP 116/79 02/20/18 21:00 Pulse Ox 97 02/20/18 21:00 - Medical History PMH: Fractures (LEFT ANKLE WITH SURGERY AND SCREWS), Gastritis, GERD, HTN, Hyperlipidemia Surgical History: Endoscopy Family History: States: Unknown Family Hx - Social History Hx Tobacco Use: No Hx Alcohol Use: No Hx Substance Use: No - Immunization History Hx Tetanus Toxoid Vaccination: No Hx Influenza Vaccination: No Hx Pneumococcal Vaccination: No Review Of Systems Constitutional: Negative for: Fever, Chills, Sweats Gastrointestinal: Positive for: Rectal Pain. Negative for: Nausea, Vomiting, Abdominal Pain, Diarrhea, Constipation, Melena, Hematochezia, Hematemesis Physical Exam - Physical Exam Appears: Well, No Acute Distress Skin: Normal Color, Warm Head: Atraumatic, Normacephalic Eye(s): bilateral: Normal Inspection Cardiovascular: Rhythm Regular, No Rhythm Irregular, No Edema, No Friction Rub, No Murmur Respiratory: Normal Breath Sounds, No Rales, No Rhonchi, No Wheezing Gastrointestinal/Abdominal: Bowel Sounds, Soft, No Tenderness Rectal: No Maroon Stool, No Melena, No Blood Streaked Stool, Hemorrhoids (non- thrombosed external hemorrhoid at 9 o'clock. Tender to palpation. No active bleeding.) ED Course And Treatment O2 Sat by Pulse Oximetry: 97 Medical Decision Making Medical Decision Making: Case discussed with Dr. Pedraza. Continue topical ointments, dietary modifications , sitz bath and follow up outpatient. Disposition Discussed With .: Arianna Pedraza Doctor Will See Patient In The: Office - Disposition Forms: [employer] (Greenlandic)
[2018-02-20 21:28] VITALS: O2SAT 98
== END 2018-02-20 21:31 | disposition home or self-care (01) ==
LOC: C.ER 18:12
DX: K64.4 Residual hemorrhoidal skin tags (principal); E78.5 Hyperlipidemia, unspecified; I10 Essential (primary) hypertension

== ENCOUNTER 2018-03-01 11:18 | Emergency (ER) | payer OTHER ==
[2018-03-01 11:18] VITALS: BMI 32.4
[2018-03-01 11:55] VITALS: RESP 18; O2SAT 98
[2018-03-01 12:32] LABS: BASO # 0.1 K/uL (0.0-0.2); BASO % 1.5 % (0.0-2.0); EOS # 0.1 K/uL (0.0-0.7); EOS % 3.3 % (0.0-4.0); HEMOGLOBIN 13.7 g/dL (12.0-18.0); LYMPH # 1.9 K/uL (1.0-4.3); LYMPH % 46.6 % (20.0-40.0); MEAN CELL VOLUME 85.7 fL (80.0-94.0); MEAN CORPUSCULAR HEMOGLOBIN 30.4 pg (27.0-31.0); MEAN CORPUSCULAR HGB CONC 35.4 g/dL (33.0-37.0); MEAN PLATELET VOLUME 7.6 fL (7.2-11.7); MONO # 0.4 K/uL (0.0-0.8); MONO % 8.8 % (0.0-10.0); NEUT # 1.6 K/uL (1.8-7.0); NEUT % 39.8 % (50.0-75.0); RBC 4.51 Mil/uL (4.40-5.90); RED CELL DISTRIBUTION WIDTH 12.8 % (11.5-14.5)
[2018-03-01 12:48] LABS: ALB/GLOB RATIO 1.4 (1.0-2.1); ALBUMIN 4.3 g/dL (3.5-5.0); ALT/SGPT 26 U/L (21-72); AST/SGOT 18 U/L (17-59); BLOOD UREA NITROGEN 11 mg/dL (9-20); CALCIUM 9.5 mg/dl (8.6-10.4); GFR NON-AFRICAN AMERICAN > 60; LIPASE 64 U/L (23-300)
--- NOTE | 2018-03-01 13:21 | C.PDOC ---
History Of Present Illness 53 y/o male presents to the ED for evaluation of continuous rectal pain for over 1 week. Recently had a thrombosed hemorrhoid removed by colorectal surgeon. Patient states he called the surgeon today and was referred to the ED. He also reports slight pain with defecation. No blood in the stool. No abdominal pain or fever. Colorectal surgeon: Dr. Abraham Montemayor Time Seen by Provider: 03/01/18 11:39 Chief Complaint (Nursing): GI Problem History Per: Patient History/Exam Limitations: no limitations Onset/Duration Of Symptoms: Days Current Symptoms Are (Timing): Still Present Associated Symptoms: Other (Pain with defecation) Past Medical History Reviewed: Historical Data, Nursing Documentation, Vital Signs Vital Signs: Last Vital Signs Temp 98.7 F 03/01/18 11:31 Pulse 82 03/01/18 11:31 Resp 18 03/01/18 11:31 BP 137/82 03/01/18 11:31 Pulse Ox 98 03/01/18 11:31 - Medical History PMH: Fractures (LEFT ANKLE WITH SURGERY AND SCREWS), Gastritis, GERD, HTN, Hyperlipidemia Surgical History: Endoscopy Family History: States: Unknown Family Hx - Social History Hx Tobacco Use: No Hx Alcohol Use: No Hx Substance Use: No - Immunization History Hx Tetanus Toxoid Vaccination: No Hx Influenza Vaccination: No Hx Pneumococcal Vaccination: No Review Of Systems Except As Marked, All Systems Reviewed And Found Negative. Constitutional: Negative for: Fever, Chills Cardiovascular: Negative for: Chest Pain Respiratory: Negative for: Shortness of Breath Gastrointestinal: Positive for: Rectal Pain (near incision site), Other (Pain with defecation, (-) rectal bleeding). Negative for: Vomiting, Abdominal Pain, Diarrhea, Hematochezia Genitourinary: Negative for: Dysuria, Frequency, Incontinence Neurological: Negative for: Dizziness Physical Exam - Physical Exam Appears: Non-toxic, No Acute Distress Skin: Normal Color, Warm, Dry Head: Atraumatic, Normacephalic Eye(s): bilateral: Normal Inspection, PERRL, EOMI Neck: Normal ROM Chest: Symmetrical Cardiovascular: Rhythm Regular, No Murmur Respiratory: Normal Breath Sounds, No Accessory Muscle Use Gastrointestinal/Abdominal: Bowel Sounds (normal), Soft, No Tenderness, No Distention, No Guarding, No Rebound Rectal: Other (small incision noted in perianal area, tender to touch, no discharge, no bleeding, no surrounding erythema) Male Genital: Normal Inspection Extremity: Bilateral: Atraumatic, Normal Color And Temperature, Normal ROM Neurological/Psych: Oriented x3, Normal Speech Gait: Steady ED Course And Treatment - Laboratory Results Result Diagrams: 03/01/18 12:28 03/01/18 12:28 O2 Sat by Pulse Oximetry: 98 (RA) Pulse Ox Interpretation: Normal - CT Scan/US CT A/P Other Rad Studies (CT/US): Read By Radiologist, Radiology Report Reviewed CT/US Interpretation: Evelyn. Patient NameMAAWED DUANE / [id number] Crump MD. Study [id number] 13:38:25Transcriber. Sex / AgeM / [id number]. Adrianne Carbajal MD. [facility] Forensic CenterApproval [id number] 14:59:27. My Comment. Study Comments. Report. Date of service: 03/01/2018. PROCEDURE: CT Abdomen and Pelvis with contrast. HISTORY: rectal/anal pain - ?abscess. COMPARISON: None available. TECHNIQUE: Contrast dose: 100 mL Visipaque 320 IV. Radiation dose: Total exam DLP = 1069.71 mGy-cm. This CT exam was performed using one or more of the following dose reduction techniques: Automated exposure control, adjustment of the mA and/or kV according to patient size, and/or use of iterative reconstruction technique. FINDINGS: LOWER THORAX: No visible consolidation, pleural effusion, or pneumothorax. LIVER: Hepatomegaly. Hypoattenuation of the liver compatible with hepatic steatosis. GALLBLADDER AND BILE DUCTS: Unremarkable. PANCREAS: Unremarkable. No gross lesion or ductal dilatation. SPLEEN: Several subcentimeter probable splenules. The spleen appears otherwise unremarkable. ADRENALS: Unremarkable. No mass. KIDNEYS AND URETERS: The kidneys enhance symmetrically. No hydronephrosis or obstructing calculus identified. Probable right renal cysts measuring up to 4.4 cm on the right. Indeterminate, possible hyperdense cyst on the left measures approximately 0.7 x 1.3 cm. VASCULATURE: No aortic aneurysm. BOWEL: Stomach is nondistended. Lack of oral contrast limits evaluation for bowel pathology. Bowel loops appear within normal limits of caliber without evidence of obstruction. Moderate constipation. APPENDIX: The appendix appears within normal limits of caliber. No secondary signs of acute appendicitis. PERITONEUM: No significant free fluid. No definite free air. LYMPH NODES: No bulky adenopathy identified. BLADDER: Unremarkable. REPRODUCTIVE: Borderline enlargement of the prostate gland. BONES: Degenerative changes of the spine. OTHER FINDINGS: None. IMPRESSION: No definite rectal abscess or fluid collection identified. Low-density right renal lesions appear consistent with cysts. Possible hyperdense cyst, left kidney. Findings demonstrated on prior examination without significant interval change. Follow-up as indicated. Hepatomegaly. Hypoattenuation of the liver compatible with hepatic steatosis. Moderate constipation. Borderline enlargement of the prostate gland. Additional findings as above. Progress Note: Case discussed w/ Dr. Montemayor, recommends labs and CT scan for e valuation. Medical Decision Making Medical Decision Making: Initial Plan: --Blood work --CT Abd/Pelvis CT shows no definite rectal abscess. Counseled patient regarding findings. Disposition Counseled Patient/Family Regarding: Studies Performed, Diagnosis, Need For Followup - Disposition Referrals: Abraham Montemayor MD [Staff Provider] - Disposition: HOME/ ROUTINE Disposition Time: 13:00 Condition: GOOD Additional Instructions: DUANE JULIAN, thank you for letting us take care of you today. Your provider was Jeramie Martines DO and you were treated for RECTAL PAIN. The emergency medical care you received today was directed at your acute symptoms. If you were prescribed any medication, please fill it and take as directed. It may take several days for your symptoms to resolve. Return to the Emergency Department if your symptoms worsen, do not improve, or if you have any other problems. Please contact your doctor or call one of the physicians/clinics you have been referred to that are listed on the Patient Visit Information form that is included in your discharge packet. Bring any paperwork you were given at discharge with you along with any medications you are taking to your follow up visit. Our treatment cannot replace ongoing medical care by a primary care provider outside of the emergency department. Thank you for allowing the [facility] team to be part of your care today. Follow up with your colo-rectal surgeon in 1-2 days for re-evaluation and further management. Instructions: Hemorrhoids (DC) Forms: [employer] (Finnish) - POA Present On Arrival: None - Clinical Impression Clinical Impression: Hemorrhoids - Scribe Statement The provider has reviewed the documentation as recorded by the Henry Abrams Provider Attestation: All medical record entries made by the Henry were at my direction and personally dictated by me. I have reviewed the chart and agree that the record accurately reflects my personal performance of the history, physical exam, medical decision making, and the department course for this patient. I have also personally directed, reviewed, and agree with the discharge instructions and disposition.
[2018-03-01] MEDS ORDERED: Iodixanol 320 MG/ML 100 ML BOTTLE IV ONE (13:28)
--- NOTE | 2018-03-01 15:01 | CT ---
Date of service: 03/01/2018 PROCEDURE: CT Abdomen and Pelvis with contrast HISTORY: rectal/anal pain - ?abscess COMPARISON: None available TECHNIQUE: Contrast dose: 100 mL Visipaque 320 IV Radiation dose: Total exam DLP = 1069.71 mGy-cm. This CT exam was performed using one or more of the following dose reduction techniques: Automated exposure control, adjustment of the mA and/or kV according to patient size, and/or use of iterative reconstruction technique. FINDINGS: LOWER THORAX: No visible consolidation, pleural effusion, or pneumothorax. LIVER: Hepatomegaly. Hypoattenuation of the liver compatible with hepatic steatosis. GALLBLADDER AND BILE DUCTS: Unremarkable. PANCREAS: Unremarkable. No gross lesion or ductal dilatation. SPLEEN: Several subcentimeter probable splenules. The spleen appears otherwise unremarkable. ADRENALS: Unremarkable. No mass. KIDNEYS AND URETERS: The kidneys enhance symmetrically. No hydronephrosis or obstructing calculus identified. Probable right renal cysts measuring up to 4.4 cm on the right. Indeterminate, possible hyperdense cyst on the left measures approximately 0.7 x 1.3 cm. VASCULATURE: No aortic aneurysm. BOWEL: Stomach is nondistended. Lack of oral contrast limits evaluation for bowel pathology. Bowel loops appear within normal limits of caliber without evidence of obstruction. Moderate constipation. APPENDIX: The appendix appears within normal limits of caliber. No secondary signs of acute appendicitis. PERITONEUM: No significant free fluid. No definite free air. LYMPH NODES: No bulky adenopathy identified. BLADDER: Unremarkable. REPRODUCTIVE: Borderline enlargement of the prostate gland. BONES: Degenerative changes of the spine. OTHER FINDINGS: None. IMPRESSION: No definite rectal abscess or fluid collection identified. Low-density right renal lesions appear consistent with cysts. Possible hyperdense cyst, left kidney. Findings demonstrated on prior examination without significant interval change. Follow-up as indicated Hepatomegaly. Hypoattenuation of the liver compatible with hepatic steatosis. Moderate constipation. Borderline enlargement of the prostate gland. Additional findings as above.
[2018-03-01 15:24] VITALS: BP 130/85; PULSE 75; TEMP 97.4
== END 2018-03-01 15:24 | disposition home or self-care (01) ==
LOC: C.ER 11:18
DX: K64.9 Unspecified hemorrhoids (principal); I10 Essential (primary) hypertension; E78.5 Hyperlipidemia, unspecified; K21.9 Gastro-esophageal reflux disease without esophagitis; Z87.891 Personal history of nicotine dependence
CPT/HCPCS: 74177; 80053; 83690; 85025; 99284; Q9967

== ENCOUNTER 2018-03-03 17:02 | Inpatient (IN) | payer OTHER ==
[2018-03-03 17:09] VITALS: BMI 29.7
[2018-03-03 18:32] LABS: BASO % 0.9 % (0.0-2.0); EOS # 0.1 K/uL (0.0-0.7); EOS % 1.5 % (0.0-4.0); HEMOGLOBIN 14.1 g/dL (12.0-18.0); LYMPH # 1.7 K/uL (1.0-4.3); LYMPH % 36.9 % (20.0-40.0); MEAN CELL VOLUME 85.9 fL (80.0-94.0); MEAN CORPUSCULAR HEMOGLOBIN 29.5 pg (27.0-31.0); MEAN CORPUSCULAR HGB CONC 34.4 g/dL (33.0-37.0); MONO # 0.4 K/uL (0.0-0.8); MONO % 9.3 % (0.0-10.0); NEUT # 2.4 K/uL (1.8-7.0); NEUT % 51.4 % (50.0-75.0); RBC 4.76 Mil/uL (4.40-5.90); RED CELL DISTRIBUTION WIDTH 12.9 % (11.5-14.5); WHITE BLOOD COUNT 4.7 K/uL (4.8-10.8)
[2018-03-03 18:44] LABS: URINE BACTERIA RARE (<OCC); URINE BILIRUBIN NEGATIVE (NEGATIVE); URINE BLOOD NEGATIVE (NEGATIVE); URINE CLARITY Clear (Clear); URINE COLOR Straw (YELLOW); URINE GLUCOSE (UA) NORMAL (Normal); URINE LEUKOCYTE ESTERASE NEG Leu/uL (Negative); URINE PROTEIN NEGATIVE (NEGATIVE); URINE UROBILINOGEN NORMAL mg/dL (0.2-1.0)
[2018-03-03 18:45] LABS: INR 1.1; PROTHROMBIN TIME 11.9 SECONDS (9.7-12.2)
--- NOTE | 2018-03-03 18:51 | C.PDOC ---
History Of Present Illness 53 y/o M p/w rectal pain x months. Patient reports bright red rectal bleeding intermittently which began again yesterday. Denies fever, chills, vomiting, abdominal pain, dysuria. States went to see. Dr. Pedraza today who instructed rey reyes to come to ED for further evaluation. Time Seen by Provider: 03/03/18 17:59 Chief Complaint (Nursing): GI Problem Past Medical History Vital Signs: Last Vital Signs Temp 98.5 F 03/03/18 17:08 Pulse 89 03/03/18 17:08 Resp 18 03/03/18 17:08 BP 144/84 03/03/18 17:08 Pulse Ox 99 03/03/18 17:08 - Medical History PMH: Fractures (LEFT ANKLE WITH SURGERY AND SCREWS), Gastritis, GERD, HTN, Hyperlipidemia Surgical History: Endoscopy Family History: States: Unknown Family Hx - Social History Hx Tobacco Use: No Hx Alcohol Use: No Hx Substance Use: No - Immunization History Hx Tetanus Toxoid Vaccination: No Hx Influenza Vaccination: No Hx Pneumococcal Vaccination: No Review Of Systems Except As Marked, All Systems Reviewed And Found Negative. Constitutional: Negative for: Fever Respiratory: Negative for: Shortness of Breath Physical Exam - Physical Exam Additional Physical Exam Comments: Constitutional: No acute distress. Head: Normocephalic. Atraumatic. Eyes: PERRL. ENT: Moist mucous membranes. Neck: Supple. Cardiovascular: Regular rate. Radial pulse 2+ bilaterally. Chest: No tenderness. Respiratory: Normal breath sounds B/L. GI: Soft. Nontender. Nondistended. Rectal: No hemorrhoids, visible bleeding, obvious fissures, or perianal abscess. Digital rectal exam unable to be performed, patient could not tolerate due to pain. Back: No CVA tenderness. Musculoskeletal: No tenderness or swelling of extremities. Bilateral pitting e león. Skin: No rash. Neurologic: Alert, no focal deficit. ED Course And Treatment - Laboratory Results Result Diagrams: 03/03/18 18:25 03/03/18 18:25 O2 Sat by Pulse Oximetry: 99 Medical Decision Making Medical Decision Making: Dr. Pedraza recommends admission to Dr. Vickers for anal fissure and possible rectal abscess. Recommends consultation with Dr. Salmon. Dr. Vickers accepts to his service. Disposition - Disposition Disposition: HOSPITALIZED Disposition Time: 19:00 Condition: FAIR - Clinical Impression Clinical Impression: Rectal bleeding, Anal fissure, Rectal abscess
[2018-03-03 18:54] LABS: ALB/GLOB RATIO 1.4 (1.0-2.1); ALBUMIN 4.9 g/dL (3.5-5.0); ALT/SGPT 26 U/L (21-72); AST/SGOT 22 U/L (17-59); BLOOD UREA NITROGEN 14 mg/dL (9-20); CALCIUM 9.9 mg/dl (8.6-10.4); GFR NON-AFRICAN AMERICAN > 60
[2018-03-03] MEDS: Dextrose 5%/0.45% NS 1,000 ML IV SCH (21:18)
[2018-03-03] MEDS: metroNIDAZOLE IV 500 mg/100 ml 500 MG/100 ML BAG IVPB SCH (21:18)
[2018-03-03] MEDS: Metoprolol Succinate 50 mg XL Tab PO SCH (22:04)
--- NOTE | 2018-03-03 22:19 | CP.PCM.CON ---
Past Patient History - Infectious Disease Hx of Infectious Diseases: None - Past Medical History & Family History Past Medical History?: No - Past Social History Smoking Status: Former Smoker - CARDIAC Hx Hypertension: Yes - MUSCULOSKELETAL/RHEUMATOLOGICAL Hx Fractures: Yes (LEFT ANKLE WITH SURGERY AND SCREWS) - GASTROINTESTINAL Hx Gastritis: Yes - PSYCHIATRIC Hx Substance Use: No - SURGICAL HISTORY Hx Surgeries: Yes Other/Comment: Rectal procedure - ANESTHESIA Hx Anesthesia: Yes Hx Anesthesia Reactions: No Hx Malignant Hyperthermia: No Meds Allergies/Adverse Reactions: Allergies Allergy/AdvReac Type Severity Reaction Status Date / Time No Known Allergies Allergy Verified 03/03/18 17:08 - Medications Medications: Current Medications Enalapril Maleate (Vasotec) 20 mg PO DAILY [facility] Ciprofloxacin (Cipro 400mg/200ml Dsw) 400 mg in 200 mls @ 133 mls/hr IVPB Q12H [facility]; Protocol Dextrose/Sodium Chloride (Dextrose 5%/0.45% Ns 1000 Ml) 1,000 mls @ 100 mls/hr IV .Q10H [facility] Last Admin: 03/03/18 21:18 Dose: 100 mls/hr Metronidazole (Flagyl) 500 mg in 100 mls @ 100 mls/hr IVPB Q8H [facility]; Protocol Last Admin: 03/03/18 21:18 Dose: 100 mls/hr Lidocaine HCl (Xylocaine 2%) 1 ea TOP BID [facility] Metoprolol Succinate (Toprol Xl) 50 mg PO HS [facility] Last Admin: 03/03/18 22:04 Dose: Not Given Oxycodone/Acetaminophen (Percocet 5/325 Mg Tab) 1 tab PO Q4H PRN PRN Reason: Pain, Mild (1-3) Stop: 03/06/18 20:49 Spironolactone (Aldactone) 1 mg PO DAILY [facility] Results - Vital Signs Recent Vital Signs: Last Vital Signs Temp 97.8 F 03/03/18 21:22 Pulse 66 03/03/18 21:22 Resp 16 03/03/18 21:22 BP 136/85 03/03/18 21:22 Pulse Ox 99 03/03/18 21:22 - Labs Result Diagrams: 03/03/18 18:25 03/03/18 18:25 Labs: Laboratory Results - last 24 hr 03/03/18 03/03/18 03/03/18 18:25 18:25 18:25 WBC 4.7 L RBC 4.76 Hgb 14.1 Hct 40.9 MCV 85.9 MCH 29.5 MCHC 34.4 RDW 12.9 Plt Count 353 MPV 8.0 Neut % (Auto) 51.4 Lymph % (Auto) 36.9 [place] % (Auto) 9.3 Eos % (Auto) 1.5 Baso % (Auto) 0.9 Neut # (Auto) 2.4 Lymph # (Auto) 1.7 [place] # (Auto) 0.4 Eos # (Auto) 0.1 Baso # (Auto) 0.0 PT 11.9 INR 1.1 APTT 35 H Sodium 144 Potassium 4.6 Chloride 102 Carbon Dioxide 28 Anion Gap 18 BUN 14 Creatinine 0.9 Est GFR ( Amer) > 60 Est GFR (Non-Af Amer) > 60 Random Glucose 99 Calcium 9.9 Total Bilirubin 1.0 AST 22 ALT 26 Alkaline Phosphatase 49 Total Protein 8.3 Albumin 4.9 Globulin 3.4 Albumin/Globulin Ratio 1.4 Urine Color Urine Clarity Urine pH Ur Specific [place] Urine Protein Urine Glucose (UA) Urine Ketones Urine Blood Urine Nitrate Urine Bilirubin Urine Urobilinogen Ur Leukocyte Esterase Urine WBC (Auto) Urine RBC (Auto) Urine Bacteria Blood Type Antibody Screen 03/03/18 03/03/18 18:25 18:33 WBC RBC Hgb Hct MCV MCH MCHC RDW Plt Count MPV Neut % (Auto) Lymph % (Auto) [place] % (Auto) Eos % (Auto) Baso % (Auto) Neut # (Auto) Lymph # (Auto) [place] # (Auto) Eos # (Auto) Baso # (Auto) PT INR APTT Sodium Potassium Chloride Carbon Dioxide Anion Gap BUN Creatinine Est GFR ( Amer) Est GFR (Non-Af Amer) Random Glucose Calcium Total Bilirubin AST ALT Alkaline Phosphatase Total Protein Albumin Globulin Albumin/Globulin Ratio Urine Color Straw Urine Clarity Clear Urine pH 6.0 Ur Specific [place] 1.008 Urine Protein Negative Urine Glucose (UA) Normal Urine Ketones Negative Urine Blood Negative Urine Nitrate Negative Urine Bilirubin Negative Urine Urobilinogen Normal Ur Leukocyte Esterase Neg Urine WBC (Auto) < 1 Urine RBC (Auto) < 1 Urine Bacteria Rare Blood Type O POSITIVE Antibody Screen Negative
[2018-03-03] MEDS: Ciprofloxacin 400mg/200ml D5W 400 MG/200 ML BAG IVPB SCH (23:58)
[2018-03-04] MEDS: metroNIDAZOLE IV 500 mg/100 ml 500 MG/100 ML BAG IVPB SCH ×3 (04:45→21:35)
--- NOTE | 2018-03-04 06:40 | CP.PCM.CON ---
Addendum entered and electronically signed by Lisa Marti DO 03/04/18 21:31: No surgical intervention at this time. Recommend outpatient evaluation for rectal pain w/BRBPR. Further mgmt as per primary team. DW Dr. Luis Antonio Marti, PGY-2 Original Note: History of Present Illness - History of Present Illness History of Present Illness: General Surgery; Dr Salmon Pt is a 53M who presents with 10 days of rectal pain. Pt states pain feels like a dull throbbing that varies in intensity. The pain is worse whenever he defecates. Has been having difficulty with bowel movements due to pain. Also reports BRBPR when going to the rest room, but otherwise no blood has been evident. Stools have been firm and difficult to pass. Denies n/v, sob or chest pain. Denies f/c. Pt has ahistory of hemorrhoids which were treated surgically (per pt report) by Dr Montemayor. Sees Dr Pedraza for GI. Last colonscopy in 2011. Review of Systems - Review of Systems All systems: reviewed and no additional remarkable complaints except (as per hpi) Past Patient History - Infectious Disease Hx of Infectious Diseases: None - Past Medical History & Family History Past Medical History?: No - Past Social History Smoking Status: Never Smoked - CARDIAC Hx Hypertension: Yes - MUSCULOSKELETAL/RHEUMATOLOGICAL Hx Fractures: Yes (LEFT ANKLE WITH SURGERY AND SCREWS) - GASTROINTESTINAL Hx Gastritis: Yes - PSYCHIATRIC Hx Substance Use: No - SURGICAL HISTORY Hx Surgeries: Yes Other/Comment: Rectal procedure - ANESTHESIA Hx Anesthesia: Yes Hx Anesthesia Reactions: No Hx Malignant Hyperthermia: No Has any member of the family had a problem w/ anesthesia?: No Meds Allergies/Adverse Reactions: Allergies Allergy/AdvReac Type Severity Reaction Status Date / Time No Known Allergies Allergy Verified 03/03/18 17:08 - Medications Medications: Current Medications Enalapril Maleate (Vasotec) 20 mg PO DAILY [facility] Ciprofloxacin (Cipro 400mg/200ml Dsw) 400 mg in 200 mls @ 133 mls/hr IVPB Q12H [facility]; Protocol Last Admin: 03/03/18 23:58 Dose: 133 mls/hr Dextrose/Sodium Chloride (Dextrose 5%/0.45% Ns 1000 Ml) 1,000 mls @ 100 mls/hr IV .Q10H [facility] Last Admin: 03/03/18 21:18 Dose: 100 mls/hr Metronidazole (Flagyl) 500 mg in 100 mls @ 100 mls/hr IVPB Q8H [facility]; Protocol Last Admin: 03/04/18 04:45 Dose: 100 mls/hr Lidocaine HCl (Xylocaine 2%) 1 ea TOP BID [facility] Metoprolol Succinate (Toprol Xl) 50 mg PO HS [facility] Last Admin: 03/03/18 22:04 Dose: Not Given Oxycodone/Acetaminophen (Percocet 5/325 Mg Tab) 1 tab PO Q4H PRN PRN Reason: Pain, Mild (1-3) Stop: 03/06/18 20:49 Spironolactone (Aldactone) 1 mg PO DAILY [facility] Physical Exam - Constitutional Appears: Non-toxic - Eye Exam Eye Exam: Normal appearance - ENT Exam ENT Exam: Mucous Membranes Moist - Respiratory Exam Respiratory Exam: absent: Respiratory Distress - Cardiovascular Exam Cardiovascular Exam: REGULAR RHYTHM. absent: Tachycardia - Rectal Exam Rectal Exam: Deferred Additional comments: no externally evident hemorrhoids or fissures, pt will not allow TREMAINE due to pain - Neurological Exam Neurological exam: Alert, Oriented x3 Results - Vital Signs Recent Vital Signs: Last Vital Signs Temp 98.1 F 03/04/18 00:02 Pulse 82 03/04/18 00:02 Resp 20 03/04/18 00:02 BP 104/62 03/04/18 00:02 Pulse Ox 99 03/04/18 00:21 - Labs Result Diagrams: 03/03/18 18:25 03/03/18 18:25 Labs: Laboratory Results - last 24 hr 03/03/18 03/03/18 03/03/18 18:25 18:25 18:25 WBC 4.7 L RBC 4.76 Hgb 14.1 Hct 40.9 MCV 85.9 MCH 29.5 MCHC 34.4 RDW 12.9 Plt Count 353 MPV 8.0 Neut % (Auto) 51.4 Lymph % (Auto) 36.9 [place] % (Auto) 9.3 Eos % (Auto) 1.5 Baso % (Auto) 0.9 Neut # (Auto) 2.4 Lymph # (Auto) 1.7 [place] # (Auto) 0.4 Eos # (Auto) 0.1 Baso # (Auto) 0.0 PT 11.9 INR 1.1 APTT 35 H Sodium 144 Potassium 4.6 Chloride 102 Carbon Dioxide 28 Anion Gap 18 BUN 14 Creatinine 0.9 Est GFR ( Amer) > 60 Est GFR (Non-Af Amer) > 60 Random Glucose 99 Calcium 9.9 Total Bilirubin 1.0 AST 22 ALT 26 Alkaline Phosphatase 49 Total Protein 8.3 Albumin 4.9 Globulin 3.4 Albumin/Globulin Ratio 1.4 Urine Color Urine Clarity Urine pH Ur Specific [place] Urine Protein Urine Glucose (UA) Urine Ketones Urine Blood Urine Nitrate Urine Bilirubin Urine Urobilinogen Ur Leukocyte Esterase Urine WBC (Auto) Urine RBC (Auto) Urine Bacteria Blood Type Antibody Screen 03/03/18 03/03/18 18:25 18:33 WBC RBC Hgb Hct MCV MCH MCHC RDW Plt Count MPV Neut % (Auto) Lymph % (Auto) [place] % (Auto) Eos % (Auto) Baso % (Auto) Neut # (Auto) Lymph # (Auto) [place] # (Auto) Eos # (Auto) Baso # (Auto) PT INR APTT Sodium Potassium Chloride Carbon Dioxide Anion Gap BUN Creatinine Est GFR ( Amer) Est GFR (Non-Af Amer) Random Glucose Calcium Total Bilirubin AST ALT Alkaline Phosphatase Total Protein Albumin Globulin Albumin/Globulin Ratio Urine Color Straw Urine Clarity Clear Urine pH 6.0 Ur Specific [place] 1.008 Urine Protein Negative Urine Glucose (UA) Normal Urine Ketones Negative Urine Blood Negative Urine Nitrate Negative Urine Bilirubin Negative Urine Urobilinogen Normal Ur Leukocyte Esterase Neg Urine WBC (Auto) < 1 Urine RBC (Auto) < 1 Urine Bacteria Rare Blood Type O POSITIVE Antibody Screen Negative Assessment & Plan - Assessment and Plan (Free Text) Assessment: 53M with rectal pain and BRBPR Plan: ok for CLD trend H/H rec GI consult and posisble colonoscopy further recs pending attending phill d/w Dr Luis Antonio Stratton, PGY4
[2018-03-04] MEDS ORDERED: Lidocaine 2% Jelly (30 ml) TOP SCH (10:00)
[2018-03-04] MEDS: Dextrose 5%/0.45% NS 1,000 ML IV SCH ×2 (11:46→15:00)
[2018-03-04] MEDS: Ciprofloxacin 400mg/200ml D5W 400 MG/200 ML BAG IVPB SCH ×2 (11:54→23:34)
[2018-03-04] MEDS: Lidocaine 2% Jelly (30 ml) TOP SCH (17:33)
[2018-03-04] MEDS: Oxycodone/Acetaminophen 5/325 mg Tab PO PRN (17:53)
[2018-03-04] MEDS: Metoprolol Succinate 50 mg XL Tab PO SCH (21:40)
[2018-03-05] MEDS: Dextrose 5%/0.45% NS 1,000 ML IV SCH ×4 (03:13→23:18)
[2018-03-05] MEDS: metroNIDAZOLE IV 500 mg/100 ml 500 MG/100 ML BAG IVPB SCH ×3 (04:56→21:12)
[2018-03-05] MEDS: Lidocaine 2% Jelly (30 ml) TOP SCH ×2 (09:26→17:18)
[2018-03-05] MEDS ORDERED: Peg-Electrolyte Oral Soln 4L (Golytely) PO ONE (11:00)
[2018-03-05] MEDS: Ciprofloxacin 400mg/200ml D5W 400 MG/200 ML BAG IVPB SCH ×2 (11:22→23:48)
[2018-03-05 11:44] LABS: EOS # 0.2 K/uL (0.0-0.7); EOS % 4.5 % (0.0-4.0); HEMOGLOBIN 13.6 g/dL (12.0-18.0); LYMPH # 1.5 K/uL (1.0-4.3); LYMPH % 33.4 % (20.0-40.0); MEAN CELL VOLUME 86.3 fL (80.0-94.0); MEAN CORPUSCULAR HGB CONC 34.7 g/dL (33.0-37.0); MONO # 0.4 K/uL (0.0-0.8); MONO % 10.2 % (0.0-10.0); NEUT # 2.2 K/uL (1.8-7.0); NEUT % 50.9 % (50.0-75.0); NRBC % 0.1 % (0.0-2.0); RBC 4.53 Mil/uL (4.40-5.90); RED CELL DISTRIBUTION WIDTH 13.2 % (11.5-14.5); WHITE BLOOD COUNT 4.4 K/uL (4.8-10.8)
[2018-03-05 12:16] LABS: ALB/GLOB RATIO 1.3 (1.0-2.1); ALBUMIN 4.1 g/dL (3.5-5.0); ALT/SGPT 21 U/L (21-72); AST/SGOT 17 U/L (17-59); BLOOD UREA NITROGEN 8 mg/dL (9-20); CALCIUM 9.3 mg/dl (8.6-10.4); GFR NON-AFRICAN AMERICAN > 60
--- NOTE | 2018-03-05 13:05 | PN ---
DATE: 03/05/2018 SUBJECTIVE: This is a 53-year-old male seen and examined yesterday for official GI consultation by the admitting Medical Team, reexamined again today due to severe persistent rectal pain with rectal discharge and recent change of bowel movement habits, but no reported chest pain or palpitation. No significant shortness of breath. No chills or fever. However, the patient had intermittent periods of nausea with dyspepsia and during his episodes of bowel movement and after with rectal bleeding on and off. Today's lab results still pending. PHYSICAL EXAMINATION: GENERAL: A 53-year-old male who appeared to be awake, alert, and oriented, tolerating only clear liquid diet. VITAL SIGNS: Afebrile, with pulse of 64, respiratory rate 20-22, blood pressure 110/70. HEENT: Showed pale, dry oral mucous membranes. Nonicteric sclerae. LUNGS: Few scattered crepitations. Decreased air entry at bases. HEART: Positive S1 and S2. ABDOMEN: Soft, with mild generalized tenderness. No mass or organomegaly. No rebound tenderness or guarding, but lower abdominal and midepigastric tenderness. RECTAL: Examination with severe tenderness and mucoid exudate mixed with trace of fresh and old blood. EXTREMITIES: Without significant clubbing, cyanosis, or edema. No reported new neurological deficits, sensory or motor. IMPRESSION: 1. Severe rectal pain with mucoid exudate associated with periods of rectal bleeding of unclear etiology, the possibility of rectal abscess formation versus lower gastrointestinal tract blood loss should be kept in mind, and the patient's last colonoscopy was over 6 to 7 years ago as per his statement. 2. Past medical history including but not limited to hypertension, peptic ulcer disease, hyperlipidemia, left ankle fracture. SUGGESTIONS: 1. Agree with your plan. 2. Endoscopic evaluation of the GI tract for full evaluation before any surgical aggressive . Case discussed with the staff at length. Arianna Toussaint MD
[2018-03-05] MEDS ORDERED: Bisacodyl 5mg EC Tab PO ONE (17:00)
[2018-03-05] MEDS: Metoprolol Succinate 50 mg XL Tab PO SCH (21:11)
[2018-03-06] MEDS: metroNIDAZOLE IV 500 mg/100 ml 500 MG/100 ML BAG IVPB SCH ×3 (05:07→21:26)
[2018-03-06] MEDS: Lidocaine 2% Jelly (30 ml) TOP SCH ×2 (09:39→21:23)
[2018-03-06] MEDS: Dextrose 5%/0.45% NS 1,000 ML IV SCH ×2 (09:39→17:33)
[2018-03-06] MEDS ORDERED: Lactated Ringer's 1,000 ML IV SCH (09:45)
[2018-03-06] MEDS ORDERED: Propofol 10 mg/ml Inj (20 ML) ONE (09:50)
[2018-03-06 10:54] VITALS: RESP 20
[2018-03-06] MEDS: Ciprofloxacin 400mg/200ml D5W 400 MG/200 ML BAG IVPB SCH ×2 (12:28→23:48)
[2018-03-06] MEDS: Oxycodone/Acetaminophen 5/325 mg Tab PO PRN (12:39)
[2018-03-06] MEDS: Belladonna-Phenobarbital PO SCH ×2 (13:14→17:31)
--- NOTE | 2018-03-06 14:44 | CP.PCM.PN ---
Subjective - Date & Time of Evaluation Date of Evaluation: 03/06/18 Time of Evaluation: 10:41 - Subjective Subjective: PGY2 Medicine Note for Dr. Vickers Patient seen and examined this morning at bedside. No acute events. Patient reports that he is still experiencing hard stool and severe pain with defecation. He denies any blood at this time. He is tolerating his diet and denies any nausea or vomiting. He is resting comfortably in his bed without kye n. He is currently NPO for colonscopy later this morning. ROS negative. Objective - Vital Signs/Intake and Output Vital Signs (last 24 hours): Temp Pulse Resp BP Pulse Ox 97.8 F 64 20 125/78 98 03/06/18 10:53 03/06/18 10:53 03/06/18 10:53 03/06/18 12:30 03/06/18 10:53 Intake and Output: 03/06/18 03/06/18 06:59 18:59 Intake Total 250 Balance 250 - Medications Medications: Current Medications Belladonna/Phenobarbital () 1 tab PO TID [facility] Last Admin: 03/06/18 13:14 Dose: 1 tab Docusate Sodium (Colace) 100 mg PO BID [facility] Last Admin: 03/06/18 10:00 Dose: Not Given Enalapril Maleate (Vasotec) 20 mg PO DAILY [facility] Last Admin: 03/06/18 12:30 Dose: 20 mg Ciprofloxacin (Cipro 400mg/200ml Dsw) 400 mg in 200 mls @ 133 mls/hr IVPB Q12H [facility]; Protocol Last Admin: 03/06/18 12:28 Dose: 133 mls/hr Dextrose/Sodium Chloride (Dextrose 5%/0.45% Ns 1000 Ml) 1,000 mls @ 100 mls/hr IV .Q10H [facility] Last Admin: 03/06/18 09:39 Dose: Not Given Metronidazole (Flagyl) 500 mg in 100 mls @ 100 mls/hr IVPB Q8H [facility]; Protocol Last Admin: 03/06/18 05:07 Dose: 100 mls/hr Lactated Ringer's (Lactated Ringer's) 1,000 mls @ 150 mls/hr IV .Q6H40M [facility] Last Admin: 03/06/18 09:45 Dose: Not Given Lactulose (Enulose) 20 gm PO BID [facility] Last Admin: 03/06/18 09:39 Dose: Not Given Lidocaine HCl (Xylocaine 2%) 1 ea TOP BID [facility] Last Admin: 03/06/18 09:39 Dose: Not Given Metoclopramide HCl (Reglan) 5 mg IVP Q6H [facility] Last Admin: 03/06/18 13:14 Dose: 5 mg Metoprolol Succinate (Toprol Xl) 50 mg PO HS [facility] Last Admin: 03/05/18 21:11 Dose: 50 mg Oxycodone/Acetaminophen (Percocet 5/325 Mg Tab) 1 tab PO Q4H PRN PRN Reason: Pain, Mild (1-3) Stop: 03/06/18 20:49 Last Admin: 03/06/18 12:39 Dose: 1 tab Pantoprazole Sodium (Protonix Inj) 40 mg IVP DAILY [facility] Last Admin: 03/06/18 09:39 Dose: 40 mg Spironolactone (Aldactone) 25 mg PO DAILY [facility] Last Admin: 03/06/18 12:29 Dose: 25 mg Sucralfate (Carafate Tab) 1 gm PO ACBD [facility] Last Admin: 03/06/18 07:37 Dose: Not Given - Labs Labs: 03/05/18 11:37 03/05/18 11:37 PT 11.9 SECONDS (9.7-12.2) 03/03/18 18:25 INR 1.1 03/03/18 18:25 APTT 35 SECONDS (21-34) H 03/03/18 18:25 - Constitutional Appears: Non-toxic, No Acute Distress - Head Exam Head Exam: ATRAUMATIC, NORMOCEPHALIC - Eye Exam Eye Exam: Normal appearance - ENT Exam ENT Exam: Mucous Membranes Moist - Respiratory Exam Respiratory Exam: Clear to Ausculation Bilateral, NORMAL BREATHING PATTERN. absent: Accessory Muscle Use, Rales, Rhonchi, Wheezes, Respiratory Distress - Cardiovascular Exam Cardiovascular Exam: REGULAR RHYTHM, +S1 - GI/Abdominal Exam GI & Abdominal Exam: Soft, Normal Bowel Sounds. absent: Distended, Firm, Guarding, Rigid, Tenderness - Extremities Exam Extremities Exam: absent: Calf Tenderness, Pedal Edema - Neurological Exam Neurological Exam: Alert, Awake, Oriented x3 - Psychiatric Exam Psychiatric exam: Normal Affect, Normal Mood - Skin Skin Exam: Dry, Warm Assessment and Plan - Assessment and Plan (Free Text) Plan: Rectal Pain w/BRBPR General Surgery consulted, Dr. Salmon * No surgical intervention at this time. GI consulted, Dr. Pedraza * Patient went for colonoscopy this morning. * Non-bleeding external and internal hemorrhoids. * Diverticulosis in the descending colon * One 4mm polyp in th emid descending colon, removed. * Anal fissure. * High Fiber Diet for life. * Repeat colonoscopy in 5 years for surveillance base on pathology results. * Return to Dr. Pedraza's office in 6 weeks. * Use analpram HC Cream 2.5%: Apply externally BID for 8 weeks. Medications: * 1 tab PO TID * Xylocaine Gel 2% * Lacutlose 20gm PO BID * Docusate 100mg PO BID * LR @150mL/hr * Cipro 400mg IVPB q12h * Flagyl 500mg IVPB q8h Hypertension Stable Medications: * Metoprolol Succ. 50mg PO HS * Enalapril Maleate 20mg PO daily Peptic Ulcer Disease Stable Medications: * Sucralfate 1gm PO ACBD * Protonix 40mg IVP daily * Reglan 5mg IVP q6h Prophylactic Care GI - Protonix 40mg IVP daily VTE - contraindicated due to rectal bleed SCDs All medical management per Dr. Rancho Allison Jose J PGY2
[2018-03-06] MEDS: Metoprolol Succinate 50 mg XL Tab PO SCH (21:26)
[2018-03-07] MEDS: metroNIDAZOLE IV 500 mg/100 ml 500 MG/100 ML BAG IVPB SCH (04:43)
--- NOTE | 2018-03-07 06:23 | CON ---
DATE: 03/04/2018 LOCATION: 369, bed A That is from Dr. Toussaint to Dr. Hien Vickers. I was called for GI consultation by the admitting MD as well as the ER staff. The entire chart is reviewed. The patient is seen and fully examined on 03/04/2018 as requested by the ER medical team. Case discussed at length with the admitting team at the time of the consultation on 03/04/2018. All the available lab and radiology study results, current and the previous medication list, current and the previous medical events were reviewed. HISTORY OF PRESENT ILLNESS: This is a 53-year-old male who was admitted to the hospital through the emergency room with a main complaint of abdominal pain, but mainly severe rectal pain, rectal bleeding on and off with mucoid bowel movement, but no reported chest pain, palpitation, chills with fever or significant shortness of breath with period of mild nausea and dyspepsia. PAST MEDICAL HISTORY: Including mainly but not limited to, 1. Peptic ulcer disease. 2. Hyperlipidemia. 3. Hypertension. 4. Left ankle fracture. 5. 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 The patient's last colonoscopy was done over 6 to 7 years ago. FAMILY HISTORY: Unknown. SOCIAL HISTORY: No known history of cigarette smoking or alcohol intake. CURRENT MEDICATIONS: Post admission medication lists were reviewed. LABORATORY DATA: Blood workup at the time of the admission showed low white blood cells of 4.7 with normal hemoglobin and hematocrit. PHYSICAL EXAMINATION: GENERAL: A 53-year-old male awake, alert, oriented. VITAL SIGNS: Afebrile with pulse of 84, respiratory rate 20 to 22, blood pressure 140/78. HEENT: Showed pale, dry oral mucous membrane. Nonicteric sclerae. LYMPH NODES: No lymphadenitis or lymphadenopathy. LUNGS: Few scattered crepitation. Decreased air entry at bases. HEART: Positive S1 and S2. ABDOMEN: Soft with generalized tenderness but mainly in the left and right lower quadrant area. No mass or organomegaly. No rebound tenderness or guarding. RECTAL: Examination was done with severe tenderness, evidence of internal hemorrhoids and anal fissure with trace of fresh and old blood. EXTREMITIES: Without significant edema, clubbing or cyanosis. NEUROLOGICAL: No reported new neurological deficits, sensory or motor. IMPRESSION: 1. Gastrointestinal bleeding. 2. Rectal pain with possible intrarectal abscess formation with infected anal fissure and internal hemorrhoids. 3. Re-exacerbation of peptic ulcer disease. 4. To rule out occult gastrointestinal malignancy. 5. Past medical history as above. SUGGESTIONS: 1. Continue current management. 2. Repeat colonoscopy. 3. Surgical consultation to follow. 4. Proton pump inhibitors IV. 5. Flagyl IV. 6. Further recommendation to follow and cancer markers to be ordered. Arianna Toussaint MD
--- NOTE | 2018-03-07 06:26 | HP ---
HISTORY OF PRESENT ILLNESS: The patient was admitted to the hospital with chief complaint of rectal pain. The patient has history of polyps, history of anal fissures. PHYSICAL EXAMINATION: GENERAL: The patient is awake, alert, and oriented. VITAL SIGNS: Temperature 98, pulse 90. HEENT: Within normal limits. NECK: Supple. LUNGS: Symmetrical. HEART: Regular. ABDOMEN: Soft. EXTREMITIES: No edema. The patient suffers from rectal pain, anal fissure. Patient on bed rest, given IV antibiotics. GI and surgical consult. Hien Vickers MD
[2018-03-07 07:54] VITALS: PULSE 75; TEMP 98; O2SAT 95
--- NOTE | 2018-03-07 09:23 | CP.PCM.PN ---
Subjective - Date & Time of Evaluation Date of Evaluation: 03/07/18 Time of Evaluation: 09:23 - Subjective Subjective: PGY2 Medicine Note for Dr. Vickers Patient seen and examined this morning at bedside. No acute events. Re-discussed findings of colonoscopy with patient. We discussed that since patient already has a colo-rectal surgeon (Dr. Montemayor), it is recommended that he follows up with him for any surgeries as he has preformed previous procedures on patient. Patient states he is currently comfortable but is concerned that he will still be in pain once discharged and going back to work. He was informed that the pain will not resolve completely and that this is why he needs to follow up with his colo-rectal surgeon. He will be provided with prescriptions for similar medications that he has been receiving in the hospital until he is able to follow up with his surgeon. Patient has no other complaints at this time. Objective - Vital Signs/Intake and Output Vital Signs (last 24 hours): Temp Pulse Resp BP Pulse Ox 98 F 75 20 118/75 95 03/07/18 07:51 03/07/18 07:51 03/07/18 07:51 03/07/18 07:51 03/07/18 07:51 Intake and Output: 03/07/18 03/07/18 06:59 18:59 Intake Total 1250 Balance 1250 - Medications Medications: Current Medications Belladonna/Phenobarbital () 1 tab PO TID [facility] Last Admin: 03/06/18 17:31 Dose: 1 tab Docusate Sodium (Colace) 100 mg PO BID [facility] Last Admin: 03/06/18 17:31 Dose: 100 mg Enalapril Maleate (Vasotec) 20 mg PO DAILY [facility] Last Admin: 03/06/18 12:30 Dose: 20 mg Ciprofloxacin (Cipro 400mg/200ml Dsw) 400 mg in 200 mls @ 133 mls/hr IVPB Q12H [facility]; Protocol Last Admin: 03/06/18 23:48 Dose: 133 mls/hr Metronidazole (Flagyl) 500 mg in 100 mls @ 100 mls/hr IVPB Q8H [facility]; Protocol Last Admin: 03/07/18 04:43 Dose: 100 mls/hr Lactulose (Enulose) 20 gm PO BID [facility] Last Admin: 03/06/18 17:31 Dose: 20 gm Lidocaine HCl (Xylocaine 2%) 1 ea TOP BID [facility] Last Admin: 03/06/18 21:23 Dose: 1 applic Metoclopramide HCl (Reglan) 5 mg IVP Q6H [facility] Last Admin: 03/07/18 02:47 Dose: 5 mg Metoprolol Succinate (Toprol Xl) 50 mg PO HS [facility] Last Admin: 03/06/18 21:26 Dose: 50 mg Pantoprazole Sodium (Protonix Inj) 40 mg IVP DAILY [facility] Last Admin: 03/06/18 09:39 Dose: 40 mg Spironolactone (Aldactone) 25 mg PO DAILY [facility] Last Admin: 03/06/18 12:29 Dose: 25 mg Sucralfate (Carafate Tab) 1 gm PO ACBD [facility] Last Admin: 03/06/18 17:31 Dose: 1 gm - Labs Labs: 03/05/18 11:37 03/05/18 11:37 PT 11.9 SECONDS (9.7-12.2) 03/03/18 18:25 INR 1.1 03/03/18 18:25 APTT 35 SECONDS (21-34) H 03/03/18 18:25 - Additional Findings Additional findings: - Constitutional Appears: Non-toxic, No Acute Distress - Head Exam Head Exam: ATRAUMATIC, NORMOCEPHALIC - Eye Exam Eye Exam: Normal appearance - ENT Exam ENT Exam: Mucous Membranes Moist - Respiratory Exam Respiratory Exam: Clear to Ausculation Bilateral, NORMAL BREATHING PATTERN. absent: Accessory Muscle Use, Rales, Rhonchi, Wheezes, Respiratory Distress - Cardiovascular Exam Cardiovascular Exam: REGULAR RHYTHM, +S1 - GI/Abdominal Exam GI & Abdominal Exam: Soft, Normal Bowel Sounds. absent: Distended, Firm, Guarding, Rigid, Tenderness - Extremities Exam Extremities Exam: absent: Calf Tenderness, Pedal Edema - Neurological Exam Neurological Exam: Alert, Awake, Oriented x3 - Psychiatric Exam Psychiatric exam: Normal Affect, Normal Mood - Skin Skin Exam: Dry, Warm Assessment and Plan - Assessment and Plan (Free Text) Plan: Rectal Pain w/BRBPR General Surgery consulted, Dr. Salmon * No surgical intervention at this time. GI consulted, Dr. Pedraza * Patient went for colonoscopy this morning. * Non-bleeding external and internal hemorrhoids. * Diverticulosis in the descending colon * One 4mm polyp in th emid descending colon, removed. * Anal fissure. * High Fiber Diet for life. * Repeat colonoscopy in 5 years for surveillance base on pathology results. * Return to Dr. Pedraza's office in 6 weeks. * Use analpram HC Cream 2.5%: Apply externally BID for 8 weeks. Medications: * 1 tab PO TID * Xylocaine Gel 2% * Lacutlose 20gm PO BID * Docusate 100mg PO BID * LR @150mL/hr * Cipro 400mg IVPB q12h * Flagyl 500mg IVPB q8h Hypertension Stable Medications: * Metoprolol Succ. 50mg PO HS * Enalapril Maleate 20mg PO daily Peptic Ulcer Disease Stable Medications: * Sucralfate 1gm PO ACBD * Protonix 40mg IVP daily * Reglan 5mg IVP q6h Prophylactic Care GI - Protonix 40mg IVP daily VTE - contraindicated due to rectal bleed SCDs DISPO: Patient discharged home on 03/07/18 with the following discharge instructions: Patient is to be discharge home per Dr. Vickers. Patient is to follow up with his primary care physician within 2-3 days. Patient is to follow up with Dr. Pedraza in his office in 6 weeks. Please call schedule an appointment. Patient is to follow up with his [place]-Rectal Surgeon, Dr. Montemayor, for further management and treatment of his rectal pain. Patient is to use Lidocaine 2% gel on rectum. Apply externally BID for 8 weeks. - Ciprofloxacin 500mg by mouth every 12 hours for 10 more days. - Sucralfate 1gm tab by mouth before breakfast and dinner. - 1 tab by mouth three times per day. Patient is to continue his medications as previously prescribed by his primary c are physician. If patient experiences any new or worsening symptoms, please go to the nearest emergency department. All medical management per Dr. Rancho Allison Jose J PGY2
[2018-03-07] MEDS: Belladonna-Phenobarbital PO SCH (10:54)
[2018-03-07 10:55] VITALS: BP 118/72
[2018-03-07] MEDS: Lidocaine 2% Jelly (30 ml) TOP SCH (10:56)
[2018-03-07 11:01] LABS: BASO % 1.1 % (0.0-2.0); EOS # 0.2 K/uL (0.0-0.7); EOS % 4.4 % (0.0-4.0); HEMOGLOBIN 13.1 g/dL (12.0-18.0); LYMPH # 1.4 K/uL (1.0-4.3); MEAN CELL VOLUME 85.2 fL (80.0-94.0); MEAN CORPUSCULAR HGB CONC 35.2 g/dL (33.0-37.0); MEAN PLATELET VOLUME 8.1 fL (7.2-11.7); MONO # 0.4 K/uL (0.0-0.8); MONO % 9.7 % (0.0-10.0); NEUT % 49.8 % (50.0-75.0); NRBC % 0.1 % (0.0-2.0); RBC 4.38 Mil/uL (4.40-5.90); RED CELL DISTRIBUTION WIDTH 12.9 % (11.5-14.5)
[2018-03-07 11:16] LABS: BLOOD UREA NITROGEN 6 mg/dL (9-20); GFR NON-AFRICAN AMERICAN > 60
--- NOTE | 2018-03-07 13:06 | PN ---
DATE: 03/07/2018 LOCATION: [address]. SUBJECTIVE: This is a 53-year-old male seen and examined in rounds with persistent complaint of severe rectal pain with trace of fresh blood, the patient had colonoscopy with polypectomy yesterday. Pathology report is still pending. The entire chart is reviewed including but not limited to the most recent lab and radiology study results, current and the previous medication list, current and the previous medical events. No chest pain. No palpitation. The patient tolerating good diet so far. Most recent lab results showed normal CBC so far with increased bilirubin to 1.8. Today's lab results still pending. PHYSICAL EXAMINATION: GENERAL: A 53-year-old male. VITAL SIGNS: Afebrile with pulse of 66, respiratory rate 20 to 22, blood pressure 102/62. HEENT: Showed dry, oral mucous membrane. Nonicteric sclerae. LUNGS: Few scattered crepitation. Decreased air entry at bases. HEART: Positive S1 and S2. ABDOMEN: Soft with mild generalized tenderness. No mass or organomegaly. Bowel sounds are present. RECTAL: Severe tenderness, positive for internal and external hemorrhoids and anal fissure. Coag-positive stool. EXTREMITIES: Without significant clubbing, cyanosis or edema. NEUROLOGICAL: No reported new neurological deficit, sensory or motor. IMPRESSION: 1. Multiple large internal hemorrhoids with anal fissure with mucoid exudate. The patient on intravenous antibiotics. 2. Colon polyp. Pathology report is still pending. 3. Re-exacerbation of peptic ulcer disease. 4. Known history of hypertension, hyperlipidemia with left ankle fracture treated surgically. SUGGESTIONS: 1. Continue current management. 2. Surgical reevaluation. 3. Further recommendation to follow. Arianna Toussaint MD
== END 2018-03-07 13:00 | disposition home or self-care (01) | DRG 189 ==
LOC: C.ER 17:02 → C.9E 20:43 → C.3T 21:15
PROVIDERS: ADMIT Internal Medicine Pulmonary Disease; ATTEND Internal Medicine Pulmonary Disease
PROC: 0DBM8ZX Excision of Descending Colon, Via Natural or Artificial Opening Endoscopic, Diagnostic (ICD-10-PCS; principal; 2018-03-06 09:48)
DX: K60.2 Anal fissure, unspecified (principal); D12.4 Benign neoplasm of descending colon; K57.30 Diverticulosis of large intestine without perforation or abscess without bleeding; E78.5 Hyperlipidemia, unspecified; I10 Essential (primary) hypertension; K21.9 Gastro-esophageal reflux disease without esophagitis; K27.3 Acute peptic ulcer, site unspecified, without hemorrhage or perforation; K64.8 Other hemorrhoids; K64.4 Residual hemorrhoidal skin tags